=== PATIENT | male | born 1970 | race Caucasian/White ===

== ENCOUNTER 2019-09-18 08:21 | Emergency (ER) | payer OTHER ==
--- OUTSIDE RECORDS SUMMARY | 2019-09-18 08:38 | XMS REPORT | Continuity of Care Document ---
:1970 Author Name Gaming Commissioner, System Address Unavailable Unavailable , Care Team Providers Name Role Phone Jordy LE, Haritha Unavailable Tim LE, Az Unavailable Haritha Saldana MD Unavailable Magdalena Sampson MD Unavailable [facility] Unavailable Muñoz INPATIENT CARE MANAGER RN, Jille Unavailable Unavailable Zakiya INPATIENT CARE MANAGER RN, April Unavailable Unavailable Ginger INPATIENT CARE MANAGER RN, Noreen Unavailable Unavailable Slowik INPATIENT CARE MANAGER RN, Tana Unavailable Unavailable LICENSED TAX CONSULTANT Preload, LICENSED TAX CONSULTANT Unavailable Unavailable Loveless INPATIENT CARE MANAGER RN, Mary Unavailable Unavailable Grant INPATIENT CARE MANAGER RN, Dolores Unavailable Unavailable Beaudin INPATIENT CARE MANAGER RN, Andrea Unavailable Unavailable [place] INPATIENT CARE MANAGER RN, Lona Unavailable Unavailable Unavailable Unavailable Problems ALLERGIC RHINITIS (J30.9) (477.9) [facility] [place] [facility] ANXIETY (F41.9) (300.00) COLITIS (K52.9) (558.9) [facility] 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 Prognosis: He reports sporadic use of the dental appliance. He is still working with his dentist to get a comfortable fit. He has no interest in retrial of cpap. as of 16-Jul-2019 Missy AHI 6/hr, 89%, CPAP intol., sleeps with a dental appliance PULMONARY NODULES (R91.8) (793.19) [place] Comments: completed [address] [place] [address] Chest surveillance 03/22/11, stable SINUS DISEASE (J34.9) (473.9) [place] TOXIC EFFECT OF TOBACCO (T65.291A) (989.84) [place] Prognosis: QUIT SMOKING IN AUGUST. ENCOURAGED HIM TO REMAIN SMOKE FREE. as of 16-Jul-2019 Missy Allergies and Adverse Reactions Mold Spores (Allergy) Wellbutrin *ANTIDEPRESSANTS* (Allergy) Comments: swelling/ diffculty breathing Medications DENTAL DEVICE ( Device) (Free Comments: Dr Paredes Text) Escitalopram Oxalate 20 MG Oral Tablet; 1 daily (20 MG) LIPITOR, 20MG (Oral Tablet); daily (20 MG) OMNARIS, 50MCG/ACT (Nasal Comments: Medication taken as Suspension); as needed (50 needed. MCG/ACT) SINGULAIR, 10MG (Oral Tablet); 1 daily (10 MG) Symbicort 160-4.5 MCG/ACT Inhalation Aerosol; 2 (two) Puff(s) two times daily for 90 days Ordered: 31-Jul-2019 Start: 31-Jul-2019 Quantity: 3 {Inhaler} [place] Refills: 3 Vitamin D 41159 UNIT Oral Capsule; 1 once a week (64186 UNIT) Xopenex HFA 45 MCG/ACT Inhalation Aerosol; 1 Aerosol tid prn for 90 days Ordered: 08-Aug-2018 Start: 08-Aug-2018 Quantity: 3 {Inhaler} [place] Refills: 3 Acid General Production Worker 10 MG Oral Status: Inactive Tablet; as needed (10 MG) Comments: Medication taken as needed. ALEJANDRO ALLERGY, 180MG (Oral Tablet); 1 (one) Tablet daily, prn for 30 days Ordered: 21-Sep-2014 Start: 27-Jul-2014 End: 26-Aug-2014 Quantity: 30 {Tablet} [facility] Status: Inactive Refills: 0 Augmentin 875-125 MG Oral Tablet; 1 (one) Tablet two times daily for 10 days Ordered: 18-Mar-2018 Start: 18-Mar-2018 End: 28-Mar-2018 Quantity: 20 {Tablet} [facility] Status: Inactive Refills: 0 AVELOX, 400MG (Oral Tablet); 1 (one) Tablet daily for 7 days Ordered: 2010 Start: 25-Sep-2011 End: 02-Oct-2011 Quantity: 7 {Tablet} [facility] Status: Inactive Refills: 0 CALCIUM GLUCONATE, 650MG (Oral Status: Inactive Tablet); 2 tabs daily (650 MG) CHANTIX CONTINUING MONTH BEVERLY, 1MG (Oral Tablet); 1 (one) Tablet UAD for 90 days Ordered: 01-Jul-2013 Start: 10-Oct-2012 End: 01-Jul-2013 Quantity: 180 {Tablet} OLGA Burns Status: Inactive Refills: 1 CHANTIX CONTINUING MONTH BEVERLY, 1MG (Oral Tablet); 1 (one) Tablet UAD for 30 days Ordered: 01-Jul-2013 Start: 10-Oct-2012 End: 01-Jul-2013 Quantity: 60 {Tablet} OLGA Burns Status: Inactive Refills: 5 DENTAL DEVICE ( Device) (Free Text); 1 (one) unspecified at bedtime for 365 days Ordered: 22-Feb-2015 Start: 27-Jul-2014 End: 22-Feb-2015 Quantity: 1 {Unspecified} OLGA Burns Status: Inactive Refills: 0 FISH OIL (Oil) Status: Inactive FISH OIL, 1200MG (Oral Status: Inactive Capsule); 3 daily (1200 MG) FLEXERIL, 10MG (Oral Tablet); Status: Inactive 1 daily, as needed (10 MG) Comments: Medication taken as needed. Gabapentin 300 MG Oral Status: Inactive Capsule; (300 MG) Hydrocodone-Acetaminophen Status: Inactive 5-325 MG Oral Tablet; (5-325 MG) LIPITOR, 20MG (Oral Tablet); Status: Inactive daily (20 MG) Medrol 4 MG Oral Tablet Therapy Pack; 1 (one) beverly UAD for 6 days Ordered: Mar-2018 Start: 18-Mar-2018 End: 24-Mar-2018 Quantity: 1 {Tablet} [facility] Status: Inactive Refills: 0 NAPROXEN SODIUM, 220MG (Oral Status: Inactive Capsule); 1 daily, as needed Comments: Medication taken as needed. (220 MG) Nexium; 40mg daily Status: Inactive NORCO, 5-325MG (Oral Tablet); Status: Inactive 1 two times daily, as needed Comments: Medication taken as needed. (5-325 MG) SINGULAIR, 10MG (Oral Tablet); 1 Tablet daily for 90 days Ordered: 2013 Start: 16-Dec-2012 End: 13-Jan-2014 Quantity: 90 {Tablet} OLGA Cummings Tana Status: Inactive Refills: 3 SINGULAIR, 10MG (Oral Tablet); Status: Inactive daily (10 MG) SPIRIVA HANDIHALER, 18MCG Status: Inactive (Inhalation Capsule); daily (18 MCG) SYMBICORT, 160-4.5MCG/ACT Start: 17-May-2012 (Inhalation Aerosol); 2 (two) Status: Inactive two times daily (160-4.5 MCG/ACT) TraMADol HCl 50 MG Oral Status: Inactive Tablet; (50 MG) TRAZODONE HCL, 50MG (Oral Status: Inactive Tablet); 1 at bedtime, as Comments: Medication taken as needed. needed (50 MG) VALIUM, 5MG (Oral Tablet); 1 Status: Inactive at bedtime, as needed (5 MG) Comments: Medication taken as needed. Bevespi Aerosphere 9-4.8 MCG/ACT Inhalation Aerosol; 2 (two) Puff two times daily for 90 days Ordered: 16-Jul-2019 Start: 16-Jul-2019 End: 16-Jul-2019 Quantity: 3 {Inhaler} [facility] Status: Discontinued Refills: 3 LEVBID, 0.375MG (Oral Tablet End: 13-Feb-2012 Extended Release 12 Hour); Status: Discontinued daily (0.375 MG) PREDNISONE, 10MG (Oral End: 16-Dec-2012 Tablet); daily (10 MG) Status: Discontinued Spiriva HandiHaler 18 MCG Inhalation Capsule; 1 (one) Capsule daily for 90 days Ordered: 14-Oct-2018 Start: 14-Oct-2018 End: 14-Oct-2018 Quantity: 90 {Capsule} [place] Status: Discontinued Refills: 3 Procedures DLCO (CARBON MONOXIDE DIFFUSING CAPACITY) Status: Completed 14-Oct-2018 (87514) RESPIRATORY FLOW VOLUME LOOP (18603) Status: Completed 14-Oct-2018 REST OXIMETRY (09116) Status: Completed 14-Oct-2018 RESPIRATORY FLOW VOLUME LOOP (88085) Status: Completed 18-Mar-2018 PRE AND POST W/ RT (46195) Status: Completed 18-Mar-2018 ADMINISTRATION OF INFLUENZA VACCINE TO Status: Completed 20-Aug-2017 PATIENTS 3 YEARS AND OLDER: FLU VACCINE 3 YRS & > IM (65036) ADMIN INFLUENZA VIRUS VAC: IMMUNIZATION Status: Completed 20-Aug-2017 ADMIN (07518) REST OXIMETRY (96675) Status: Completed 20-Nov-2016 RESPIRATORY FLOW VOLUME LOOP (52108) Status: Completed 20-Nov-2016 RESPIRATORY FLOW VOLUME LOOP (33857) Status: Completed 28-Sep-2015 PRE AND POST W/ RT (53380) Status: Completed 28-Sep-2015 PRE AND POST W/ RT (94758) Status: Completed 22-Feb-2015 RESPIRATORY FLOW VOLUME LOOP (24288) Status: Completed 22-Feb-2015 RESPIRATORY FLOW VOLUME LOOP (07140) Status: Completed 27-Jul-2014 PRE AND POST (24274) Status: Completed 27-Jul-2014 RESPIRATORY FLOW VOLUME LOOP (88896) Status: Completed 13-Jan-2014 PRE AND POST W/ RT (84040) Status: Completed 13-Jan-2014 RESPIRATORY FLOW VOLUME LOOP (09936) Status: Completed 01-Jul-2013 SPIROMETRY WITH BRONCHODILATOR (66793) Status: Completed 01-Jul-2013 TOTAL VITAL CAPACITY (85672) Status: Completed 16-Dec-2012 TOTAL BODY PLETHYSMOGRAPHY: AIRWAY CLOSING Status: Completed 16-Dec-2012 VOLUME MEASUREMENT: PULM FUNCT TST PLETHYSMOGRAP (90646) RESPIRATORY FLOW VOLUME LOOP (92187) Status: Completed 16-Dec-2012 THORACIC GAS VOLUME: AIRWAY CLOSING VOLUME Status: Completed 16-Dec-2012 MEASUREMENT: PULM FUNCTION TEST BY GAS (04983) DLCO (CARBON MONOXIDE DIFFUSING CAPACITY) Status: Completed 16-Dec-2012 (87785) AIRFLOW RESISTANCE MEASUREMENT (11666) Status: Completed 16-Dec-2012 SPIROMETRY WITH BRONCHODILATOR (72732) Status: Completed 16-Dec-2012 TOBACCO USE CESSATION THERAPY: BEHAV CHNG Status: Completed 19-Aug-2012 SMOKING 3-10 MIN (41040) ACT Status: Completed Comments: 19. well controlled ACT Status: Completed Comments: ACT Status: Completed 28-Sep-2015 Comments: Back Surgery Status: Completed 29-Jun-2017 Comments: again May cervical disc surgery Status: Completed 2007 Chest X-ray Status: Completed Comments: Normal. . official interpretation and comparison by the radiologist is pending. Chest X-ray Status: Completed 14-Oct-2018 Comments: reviewed with lungs clear. official interpretation and comparison by the radiologist is pending. Chest X-ray Status: Completed Comments: Referred for follow up. stable. Chest X-ray Status: Completed 28-Sep-2015 Comments: reviewed with no acute findings. official interpretation and comparison by the radiologist is pending. Chest X-ray Status: Completed 13-Jan-2014 Comments: reviewed today with no acute findings. official interpretation and comparison by the radiologist is pending. Flu Vaccine Status: Completed 12-Aug-2017 Comments: 08/2018 Fusion L5S1 Status: Completed May-2019 PFT Status: Completed 16-Jul-2019 Comments: Minimal Obstruction. flow rates are worse compared to 10/14/18 PFT Status: Completed Comments: Mild Obstruction. Moderate Obstruction. With Reversibility. FEV1 SLIGHTLY DECREASED COMPARED TO 02/13/12 PFT Status: Completed 20-Aug-2017 Comments: declined d/t recent back surgery PFT Status: Completed 18-Mar-2018 Comments: Mild Obstruction. flow rates are stable compared to 11/20/16 PFT Status: Completed 14-Oct-2018 Comments: Mild Obstruction. flow rates have improved compared to 03/28/18. FVC 5.56 (99%), FEV1 3.84(88%), ratio 69%. Normal DLCO PFT Status: Completed 27-Jul-2014 Comments: Mild Obstruction. stable fow rates compared to 01/13/14 PFT Status: Completed 22-Feb-2015 Comments: Mild Obstruction. Moderate Obstruction. flow rates are stable compared to 07/27/14 PFT Status: Completed Comments: Mild Obstruction. Flow rates are stable compared to 02/22/15. PFT Status: Completed Comments: Mild Obstruction. Air Trapping. Normal Diffusion Capacity. FLOW RATES IMPROVED COMPARED TO 08/19/12 PFT Status: Completed 01-Jul-2013 Comments: Mild Obstruction. stable compared to 12/16/12 PFT Status: Completed 13-Jan-2014 Comments: Mild Obstruction. Moderate Obstruction. flow rates stable compared to 07/01/13 PFTs Status: Completed Comments: Moderate Obstruction. Air Trapping. Normal Diffusion Capacity. flow rates and air trapping worse compared to 03/22/11 and 10/06/08 PFTs Status: Completed Comments: Moderate Obstruction. Pneumovax Status: Completed 2008 Sinus Surgery Status: Completed 2001 PRE AND POST W/ RT (73096)Result: Hemoptysis: No Status: Completed 16-Jul-2019 PRE AND POST (07363)Result: Hemoptysis: No Status: Completed 14-Oct-2018 CXR PA & LAT (25687)Result: Are you or could Status: Completed you become ?: No; When was you last CXR/CT?: over week ago; Service Crew Leader: MIGUE MerchantT CHEST X-RAY, PA AND LATERAL (45646)Result: Are you Status: Completed 2016 or could you become ?: No; When was you last CXR/CT?: over a week ago; Service Crew Leader: buffy CAMARENAT ACT: ASSESSMENT OF DISEASE: ASTHMA SYMPTOMS EVALUATE Status: Completed 2016 (1005F)Result: [Questions] In the past 4 weeks, how much of the time did your asthma keep you from getting as much done at work, school, or home?: 5; During the past 4 weeks, how often have you had shortness of breath?: 4; During the past 4 weeks, how often did your asthma symptoms (wheezing, coughing, shortness of breath, chest tightness, or pain) wake you up at night or earlier than usual in the morning?: 5; During the past 4 weeks, how often have you used your rescue inhaler or nebulizer medication (such as albuterol)?: 3; How would you rate your asthma control during the past 4 weeks?: 5 [Total ACT Score] Score: 21 PRE AND POST W/ RT (03109)Result: Hemoptysis: No Status: Completed 20-Nov-2016 CHEST X-RAY, PA AND LATERAL (02121)Result: Are you Status: Completed 2014 or could you become ?: No; When was you last CXR/CT?: over a week ago; Service Crew Leader: MAGDALENA Merchant ACT: ASSESSMENT OF DISEASE: ASTHMA SYMPTOMS EVALUATE Status: Completed (1005F)Result: [Questions] In the past 4 weeks, how much of the time did your asthma keep you from getting as much done at work, school, or home?: 5; During the past 4 weeks, how often have you had shortness of breath?: 3; During the past 4 weeks, how often did your asthma symptoms (wheezing, coughing, shortness of breath, chest tightness, or pain) wake you up at night or earlier than usual in the morning?: 4; During the past 4 weeks, how often have you used your rescue inhaler or nebulizer medication (such as albuterol)?: 3; How would you rate your asthma control during the past 4 weeks?: 3 [Total ACT Score] Score: 18 ACT: ASSESSMENT OF DISEASE: ASTHMA SYMPTOMS EVALUATE Status: Completed 2013 (1005F)Result: [Questions] In the past 4 weeks, how much of the time did your asthma keep you from getting as much done at work, school, or home?: 4; During the past 4 weeks, how often have you had shortness of breath?: 2; During the past 4 weeks, how often did your asthma symptoms (wheezing, coughing, shortness of breath, chest tightness, or pain) wake you up at night or earlier than usual in the morning?: 4; During the past 4 weeks, how often have you used your rescue inhaler or nebulizer medication (such as albuterol)?: 3; How would you rate your asthma control during the past 4 weeks?: 3 [Total ACT Score] Score: 16 ACT: ASSESSMENT OF DISEASE: ASTHMA SYMPTOMS EVALUATE Date: 16-Dec-2012 (1005F)Result: [Questions] In the past 4 weeks, how much of the time did your asthma keep you from getting as much done at work, school, or home?: 5; During the past 4 weeks, how often have you had shortness of breath?: 4; During the past 4 weeks, how often did your asthma symptoms (wheezing, coughing, shortness of breath, chest tightness, or pain) wake you up at night or earlier than usual in the morning?: 4; During the past 4 weeks, how often have you used your rescue inhaler or nebulizer medication (such as albuterol)?: 3; How would you rate your asthma control during the past 4 weeks?: 4 [Total ACT Score] Score: 20 CHEST X-RAY, PA AND LATERAL (02227)Result: Are you Status: Completed 2012 or could you become ?: No; Service Crew Leader: Lois Peterson LPN CHEST X-RAY - PA & L (12218)Result: Are you Status: Completed or could you become ?: No; Service Crew Leader: MAGDALENA Merchant TOTAL BODY PLETHYSMOGRAPHY (92479)Result: Hemoptysis: Date: 25-Sep-2011 No; Medication Used: Albuterol 0.083% pam aerosol; Lens Finisher: Christiano Cummings RRT Immunizations Influenza (3 years and up) On: Sep-2011 Influenza (3 years and up) On: Sep-2012 Influenza (3 years and up) On: Aug-2013 Influenza (3 years and up) On: 12-Aug-2014 Comments:date approximate Influenza (3 years and up) On: 12-Aug-2015 Comments:work Influenza (3 years and up) On: 12-Aug-2016 Comments:pcp Family History Father Status: Active Comments: Extrinsic Asthma. childhood Lung Cancer Status: Active Comments: Paternal Aunt. Sleep Apnea Status: Active Comments: Brother. Social History Alcohol use: Occasional alcohol use. Caffeine use: Coffee. 2 servings / day. Current work status: Full-time. Marital status: . 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 No drug use Pets/Animals: Dog. Tobacco use: Former smoker. Comments: 13 yrs- 41 yrs. quit almost one year ago Former smoker Male Plan of Treatment Influenza (3 years and up) Scheduled for Administration Intent CXR PA & LAT (77150) Start: 14-Nov-2019 Intent PRE AND POST W/ RT (06077) Start: 14-Nov-2019 Intent ACT: ASSESSMENT OF DISEASE: ASTHMA SYMPTOMS EVALUATE Start: 28-Sep-2015 Intent (1005F) ACT: ASSESSMENT OF DISEASE: ASTHMA SYMPTOMS EVALUATE Start: 27-Jul-2014 Intent (1005F) CHEST X-RAY, PA AND LATERAL (54271) Start: 13-Jan-2014 Intent PRE/POST W/ RT (62474) Start: 19-Aug-2012 Intent RESPIRATORY FLOW VOLUME LOOP (96991) Start: 13-Feb-2012 Intent Pre/Post (78275) Start: 13-Feb-2012 Intent MEASURE AIRFLOW RESISTANCE (44206) Start: 25-Sep-2011 Intent MONOXIDE DIFFUSING CAPACITY (44958) Start: 25-Sep-2011 Intent TGV THORACIC GAS VOLUME (52218) Start: 25-Sep-2011 Intent VITAL CAPACITY TEST (19351) Start: 25-Sep-2011 Intent RESPIRATORY FLOW VOLUME LOOP (72762) Start: 25-Sep-2011 Intent Pre/Post (42227) Start: 25-Sep-2011 Intent Medical; CHEST X-RAY - Start: 19-Nov-2019 8:15 Appointment Request [facility]; PRE AND POST RT - Start: 19-Nov-2019 8:30 Appointment [facility]; FOLLOW UP 30 - 4 mnth fu w/pprt,cxr Start: 19-Nov-2019 8:45 Appointment Request [facility] COPD WITH ASTHMA : FU EITHER - Dr Adams patient Indication:COPD WITH ASTHMA COPD WITH ASTHMA : FU EITHER - Dr Adams patient Indication:COPD WITH ASTHMA COPD WITH ASTHMA : FU EITHER - Dr Adams patient Indication:COPD WITH ASTHMA COPD WITH ASTHMA : FU EITHER - Dr Adams patient Indication:COPD WITH ASTHMA COPD WITH ASTHMA : Dr TIM BARROS MD Indication:COPD WITH ASTHMA COPD WITH ASTHMA : Influenza vaccine seasonally - current Indication:COPD WITH ASTHMA COPD WITH ASTHMA : FU EITHER - Dr Adams patient Indication:COPD WITH ASTHMA COPD WITH ASTHMA : FU EITHER - Dr Adams patient Indication:COPD WITH ASTHMA COPD WITH ASTHMA : FU EITHER - Dr Adams patient Indication:COPD WITH ASTHMA COPD WITH ASTHMA : FU EITHER - Dr Adams patient Indication:COPD WITH ASTHMA COPD WITH ASTHMA : Influenza vaccine seasonally - current Indication:COPD WITH ASTHMA Medication compliance reinforced Medication compliance reinforced COPD WITH ASTHMA : Pre and post next visit Indication:COPD WITH ASTHMA Medication compliance reinforced Results No Known Results No Result Information Available Vital Signs 16-Jul-2019 8:41 Temperature 97.5 f Comments: Method: Tympanic Pulse 61 /min Comments: Pattern: Regular Respiration Rate 14 /min Comments: Pattern: Unlabored O2 SAT 98 % Comments: Room air BP Systolic 130 mm[Hg] Comments: Patient Position: Sitting; Cuff Location: Left Arm; Cuff Size: Large BP Diastolic 72 mm[Hg] Comments: Patient Position: Sitting; Cuff Location: Left Arm; Cuff Size: Large Weight 246 lb Height 73 in BMI 32.46 kg/m2 BSA 2.35 m2 14-Oct-2018 9:20 Temperature 97.3 f Comments: Method: Tympanic Pulse 72 /min Comments: Pattern: Regular Respiration Rate 16 /min Comments: Pattern: Unlabored O2 SAT 96 % Comments: Room air BP Systolic 124 mm[Hg] Comments: Patient Position: Sitting; Cuff Location: Left Arm; Cuff Size: Standard BP Diastolic 82 mm[Hg] Comments: Patient Position: Sitting; Cuff Location: Left Arm; Cuff Size: Standard Weight 245 lb Height 73 in BMI 32.32 kg/m2 BSA 2.35 m2 18-Mar-2018 8:41 Temperature 97.7 f Comments: Method: Tympanic Pulse 78 /min Comments: Pattern: Regular Respiration Rate 14 /min Comments: Pattern: Unlabored O2 SAT 97 % Comments: Room air BP Systolic 146 mm[Hg] Comments: Patient Position: Sitting; Cuff Location: Left Arm; Cuff Size: Standard BP Diastolic 80 mm[Hg] Comments: Patient Position: Sitting; Cuff Location: Left Arm; Cuff Size: Standard Weight 258 lb Height 73 in BMI 34.04 kg/m2 BSA 2.4 m2 20-Aug-2017 8:59 Temperature 98 f Comments: Method: Tympanic Pulse 80 /min Comments: Pattern: Regular Respiration Rate 15 /min Comments: Pattern: Unlabored O2 SAT 97 % Comments: Room air BP Systolic 130 mm[Hg] Comments: Patient Position: Sitting; Cuff Location: Left Arm; Cuff Size: Standard BP Diastolic 84 mm[Hg] Comments: Patient Position: Sitting; Cuff Location: Left Arm; Cuff Size: Standard Weight 248 lb Height 73 in BMI 32.72 kg/m2 BSA 2.36 m2 20-Nov-2016 14:36 Temperature 98.2 f Comments: Method: Tympanic Pulse 77 /min Comments: Pattern: Regular Respiration Rate 12 /min Comments: Pattern: Unlabored O2 SAT 98 % Comments: Room air BP Systolic 124 mm[Hg] Comments: Patient Position: Sitting; Cuff Location: Left Arm; Cuff Size: Standard BP Diastolic 74 mm[Hg] Comments: Patient Position: Sitting; Cuff Location: Left Arm; Cuff Size: Standard Weight 256 lb Height 73 in BMI 33.77 kg/m2 BSA 2.39 m2 28-Sep-2015 8:17 Temperature 98.3 f Comments: Method: Tympanic Pulse 73 /min Comments: Pattern: Regular Respiration Rate 15 /min Comments: Pattern: Unlabored O2 SAT 97 % Comments: Room air BP Systolic 142 mm[Hg] Comments: Patient Position: Sitting; Cuff Location: Left Arm; Cuff Size: Standard BP Diastolic 82 mm[Hg] Comments: Patient Position: Sitting; Cuff Location: Left Arm; Cuff Size: Standard Weight 267 lb Height 73 in BMI 35.23 kg/m2 BSA 2.43 m2 22-Feb-2015 11:22 Temperature 98.1 f Comments: Method: Tympanic Pulse 17 /min Comments: Pattern: Regular Respiration Rate 16 /min Comments: Pattern: Unlabored O2 SAT 97 % Comments: Room air BP Systolic 134 mm[Hg] Comments: Patient Position: Sitting; Cuff Location: Right Arm; Cuff Size: Large BP Diastolic 78 mm[Hg] Comments: Patient Position: Sitting; Cuff Location: Right Arm; Cuff Size: Large Weight 263 lb Height 73 in BMI 34.7 kg/m2 BSA 2.42 m2 27-Jul-2014 8:36 Temperature 96.7 f Pulse 62 /min Comments: Pattern: Regular O2 SAT 96 % Comments: Room air BP Systolic 144 mm[Hg] Comments: Patient Position: Sitting; Cuff Location: Left Arm; Cuff Size: Standard BP Diastolic 80 mm[Hg] Comments: Patient Position: Sitting; Cuff Location: Left Arm; Cuff Size: Standard Weight 258 lb Height 73 in BMI 34.04 kg/m2 BSA 2.4 m2 13-Jan-2014 8:43 Temperature 97 f Comments: Method: Tympanic Pulse 62 /min Comments: Pattern: Regular Respiration Rate 16 /min Comments: Pattern: Unlabored O2 SAT 98 % Comments: Room air BP Systolic 122 mm[Hg] Comments: Patient Position: Sitting; Cuff Location: Left Arm; Cuff Size: Large BP Diastolic 68 mm[Hg] Comments: Patient Position: Sitting; Cuff Location: Left Arm; Cuff Size: Large Weight 256 lb Height 73 in BMI 33.77 kg/m2 BSA 2.39 m2 01-Jul-2013 9:01 Temperature 98 f Comments: Method: Tympanic Pulse 82 /min Comments: Pattern: Regular Respiration Rate 18 /min Comments: Pattern: Unlabored O2 SAT 98 % Comments: Room air BP Systolic 122 mm[Hg] Comments: Patient Position: Sitting; Cuff Location: Left Arm; Cuff Size: Standard BP Diastolic 80 mm[Hg] Comments: Patient Position: Sitting; Cuff Location: Left Arm; Cuff Size: Standard Weight 255 lb Height 73 in BMI 33.64 kg/m2 BSA 2.39 m2 16-Dec-2012 9:31 Temperature 96.7 f Comments: Method: Tympanic Pulse 64 /min Comments: Pattern: Regular Respiration Rate 20 /min Comments: Pattern: Unlabored O2 SAT 97 % Comments: Room air BP Systolic 104 mm[Hg] Comments: Patient Position: Sitting; Cuff Location: Left Arm; Cuff Size: Standard BP Diastolic 68 mm[Hg] Comments: Patient Position: Sitting; Cuff Location: Left Arm; Cuff Size: Standard Weight 262 lb Height 73 in BMI 34.57 kg/m2 BSA 2.41 m2 19-Aug-2012 8:51 Temperature 96 f Pulse 68 /min Comments: Pattern: Regular Respiration Rate 16 /min Comments: Pattern: Unlabored O2 SAT 99 % Comments: Room air BP Systolic 126 mm[Hg] Comments: Patient Position: Sitting; Cuff Location: Left Arm; Cuff Size: Standard BP Diastolic 78 mm[Hg] Comments: Patient Position: Sitting; Cuff Location: Left Arm; Cuff Size: Standard Weight 254 lb Height 73 in BMI 33.51 kg/m2 BSA 2.38 m2 13-Feb-2012 9:24 Temperature 97.8 f Comments: Method: Tympanic Pulse 96 /min Comments: Pattern: Regular Respiration Rate 20 /min Comments: Pattern: Unlabored O2 SAT 97 % Comments: Room air BP Systolic 108 mm[Hg] Comments: Patient Position: Sitting; Cuff Location: Left Arm; Cuff Size: Standard BP Diastolic 76 mm[Hg] Comments: Patient Position: Sitting; Cuff Location: Left Arm; Cuff Size: Standard Weight 257 lb Height 73 in BMI 33.91 kg/m2 BSA 2.39 m2 25-Sep-2011 9:15 Temperature 97.8 f Comments: Method: Oral Pulse 68 /min Comments: Pattern: Regular Respiration Rate 22 /min Comments: Pattern: Unlabored O2 SAT 98 % Comments: Room air BP Systolic 122 mm[Hg] Comments: Patient Position: Sitting; Cuff Location: Left Arm; Cuff Size: Standard BP Diastolic 68 mm[Hg] Comments: Patient Position: Sitting; Cuff Location: Left Arm; Cuff Size: Standard Weight 244 lb Height 73 in BMI 32.19 kg/m2 BSA 2.34 m2 Advance Directives HIPAA - Effective on 10/14/2018. Expiration date unspecified. Effective: 2017 Scanned Document is available upon request. Encounters Medication Order 31-Jul-2019 11:22 To 31-Jul-2019 11:30 Encounter Diagnosis: COPD WITH ASTHMA [facility] Office Office Visit 16-Jul-2019 8:45 To 16-Jul-2019 9:54 Encounter Reason: COPD - The primary physician is Dr. Haritha Saldana. The last office visit was 9 month(s) ago ( at [facility] the time of the last visit we discontinued symbicort and spiriva and started Bevespi). 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 Symptoms include dyspnea on exertion and whee zing, while symptoms do not include non-productive cough, productive cough, clear sputum production, colored sputum production, increased sputum production or change in sputum quality. Onset was gradual 5 year(s) ago. The symptoms occur occasionally. The episodes occur daily. The patient describes this as mild and worsening. Symptoms are exacerbated by activity. Symptoms are relieved by inhaler use an d rest. Associated symptoms do not include fever, leg edema, upper respiratory infection symptoms, chest pain or altered mental status. Current treatment includes smoking cessation program, inhaled long -acting beta-2 agonists and inhaled anticholinergics. By report there is good compliance with treatment, good tolerance of treatment and fair symptom control. The frequency of exacerbations has been 1 t imes a year. Pertinent medical history includes smoking (has quit) and asthma ( allergies). The patient has not been exposed to secondhand smoke, air pollution or occupational exposure to dust. The patie nt is currently able to do activities of daily living with limitations. Past evaluation has included chest x-ray, chest CT (with stable pulmonary nodules > 2 years), pulse oximetry, pulmonary functio n tests and pulmonology evaluation. 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 AHI 6/hr, 89%, CPAP intol., sleeps with a dental appliance). No changes in management were made at the last visit. The patient gets approximately 6 hours of sleep per night. Curr ent treatment includes intra-oral device use. By report there is fair compliance with treatment, fair tolerance of treatment (the appliance still feels too tight. He is working with Dr Paredes ([facility]) t o try to adjust this) and fair symptom control. Current symptoms include sleepiness when sedentary and unrefreshing sleep, while current symptoms do not include excessive daytime sleepiness, witnessed a pnea during sleep, witnessed gasping during sleep, nocturnal choking or snoring. The patient describes this as unchanged. Symptoms are relieved by intra -oral device use. Associated symptoms do not inclu de morning headaches or nocturia. Since diagnosis the disease has been unchanged. Initial presentation included excessive daytime sleepiness, loud snoring and unrefreshing sleep. Past treatment has included CPAP therapy. Encounter Diagnosis: COPD WITH ASTHMA, JH ( OBSTRUCTIVE SLEEP APNEA), OBESITY, PULMONARY NODULES Historical Summary 24-Apr-2019 8:45 To 23-Apr-2019 14:10 Encounter Reason: COPD - The primary physician is Dr. Haritha Saldana. The last office visit was 6 month(s) ago. No [facility] changes in management were made at the last visit. 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 Symptoms include dyspnea on exertion , wheezing (at times expecially with exposure s), productive cough and clear sputum production, while symptoms do not include dyspnea, dyspnea at rest, non-productive cough, colored sputum production, increased sputum production or change in sputum quality. Onset was gradual 5 year(s) ago. The symptoms occur occasionally. The patient describes this as mild and unchanged. Symptoms are exacerbated by activity. Symptoms are relieved by inhaler use a nd rest. Associated symptoms do not include fever, leg edema, upper respiratory infection symptoms, chest pain or altered mental status. Current treatment includes smoking cessation program, inhaled geoffrey g-acting beta-2 agonists, inhaled anticholinergics and inhaled corticosteroids. By report there is good compliance with treatment, good tolerance of treatment and good symptom control. The frequency of exacerbations has been 1 times a year. Pertinent medical history includes smoking (has quit) and asthma (allergies). The patient has not been exposed to secondhand smoke, air pollution or occupational e xposure to dust. The patient is currently able to do activities of daily living without limitations and able to work without limitations. 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 AHI 6/hr, 89%, CPAP intol., sleeps with a dental appliance). No changes in manag ement were made at the last visit. The patient gets approximately 6 hours of sleep per night. Current treatment includes intra-oral device use. By report there is fair compliance with treatment, fair to lerance of treatment (the appliance feels too tight. He is working with Dr Paredes ([facility]) to try to adjust this) and fair symptom control. Current symptoms include sleepiness when sedentary and unrefres june sleep, while current symptoms do not include excessive daytime sleepiness , witnessed apnea during sleep, witnessed gasping during sleep, nocturnal choking or snoring. The patient describes this as unchanged. Symptoms are relieved by intra-oral device use. Associated symptoms do not include morning headaches or nocturia. Since diagnosis the disease has been unchanged. Initial presentation included excessive daytime sleepiness, loud snoring and unrefreshing sleep. Past treatment has included CPAP therapy. Medication Order 03-Mar-2019 15:20 To 03-Mar-2019 15:30 Encounter Diagnosis: COPD WITH ASTHMA [facility] Office Office Visit 14-Oct-2018 8:38 To 14-Oct-2018 13:03 Encounter Reason: COPD - The primary physician is Dr. Haritha Saldana. The last office visit was 7 month(s) ago ( at [facility] the time of his last visit he had a sinus infection, breathing was worse. We treated with augmentin and medrol.). 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 Symptoms include d yspnea on exertion, wheezing (at times expecially with exposures), productive cough and clear sputum production, while symptoms do not include dyspnea, dyspnea at rest, non-productive cough, colored spu fede production, increased sputum production or change in sputum quality. Onset was gradual 5 year(s) ago. The symptoms occur occasionally. The patient describes this as mild and unchanged. Symptoms are exacerbated by activity. Symptoms are relieved by inhaler use and rest. Associated symptoms do not include fever, leg edema, upper respiratory infection symptoms, chest pain or altered mental status. Cu rrent treatment includes smoking cessation program, inhaled long-acting beta-2 agonists, inhaled anticholinergics and inhaled corticosteroids. By report there is good compliance with treatment, good joy erance of treatment and good symptom control. The frequency of exacerbations has been 1 times a year. Pertinent medical history includes smoking (has quit) and asthma (allergies). The patient has not be en exposed to secondhand smoke, air pollution or occupational exposure to dust. The patient is currently able to do activities of daily living without limitations and able to work without limitations., [ADDITIONAL REASON] Sleep follow up - The sleep disorder is characterized as obstructive sleep apnea. No changes in management were made at the last visit. The patient gets approximately 6 hours of sle ep per night. Current treatment includes intra-oral device use. By report there is fair compliance with treatment, fair tolerance of treatment (the appliance feels too tight. He is working with Dr Camilo ridley ([facility]) to try to adjust this) and fair symptom control. Current symptoms include sleepiness when sedentary and unrefreshing sleep, while current symptoms do not include excessive daytime sleepiness, witnessed apnea during sleep, witnessed gasping during sleep, nocturnal choking or snoring. The patient describes this as mild and unchanged. Symptoms are relieved by intra-oral device use. Associated s ymptoms do not include morning headaches or nocturia. Since diagnosis the disease has been unchanged. Initial diagnosis of sleep disorder was 10 year(s) ago. Initial presentation included excessive dayt alejo sleepiness, loud snoring and unrefreshing sleep. Past evaluation has included complete polysomnography. Past treatment has included CPAP therapy. Encounter Diagnosis: PULMONARY NODULES, COPD WITH ASTHMA, JH (OBSTRUCTIVE SLEEP APNEA), OBESITY Office Visit 13-Oct-2018 6:38 To 13-Oct-2018 6:42 Encounter Reason: COPD - The primary physician is Dr. Haritha Saldana. The last office visit was 7 month(s) ago ( at [facility] the time of his last visit he had a sinus infection, breathing was worse. We treated with augmentin and medrol.). 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 Symptoms include d yspnea on exertion, wheezing (at times expecially with exposures), productive cough and clear sputum production, while symptoms do not include dyspnea, dyspnea at rest, non-productive cough, colored spu fede production, increased sputum production or change in sputum quality. Onset was gradual 5 year(s) ago. The symptoms occur occasionally. The patient describes this as mild and unchanged. Symptoms are exacerbated by activity. Symptoms are relieved by inhaler use and rest. Associated symptoms do not include fever, leg edema, upper respiratory infection symptoms, chest pain or altered mental status. Cu rrent treatment includes smoking cessation program, inhaled long-acting beta-2 agonists, inhaled anticholinergics and inhaled corticosteroids. By report there is good compliance with treatment, good joy erance of treatment and good symptom control. The frequency of exacerbations has been 1 times a year. Pertinent medical history includes smoking (has quit) and asthma (allergies). The patient has not be en exposed to secondhand smoke, air pollution or occupational exposure to dust. The patient is currently able to do activities of daily living without limitations and able to work without limitations., [ADDITIONAL REASON] Sleep follow up - The sleep disorder is characterized as obstructive sleep apnea. No changes in management were made at the last visit. The patient gets approximately 6 hours of sle ep per night. Current treatment includes intra-oral device use. By report there is fair compliance with treatment, fair tolerance of treatment and fair symptom control. Current symptoms include sleepine ss when sedentary and unrefreshing sleep, while current symptoms do not include excessive daytime sleepiness, witnessed apnea during sleep, witnessed gasping during sleep, nocturnal choking or snoring. The patient describes this as mild and unchanged. Symptoms are relieved by intra-oral device use. Associated symptoms do not include morning headaches or nocturia. Since diagnosis the disease has been s table. Initial diagnosis of sleep disorder was 10 year(s) ago. Initial presentation included excessive daytime sleepiness, loud snoring and unrefreshing sleep. Past evaluation has included complete poly somnography. Past treatment has included CPAP therapy. Medication Order 08-Aug-2018 14:13 To 08-Aug-2018 14:54 Encounter Diagnosis: COPD WITH ASTHMA [facility] Office Medication Order 16-Jul-2018 13:20 To 16-Jul-2018 13:39 Encounter Diagnosis: COPD WITH ASTHMA [facility] Office Visit 18-Mar-2018 8:21 To 18-Mar-2018 9:16 Encounter Reason: COPD - The primary physician is Dr. Haritha Saldana. The last office visit was 7 month(s) ago. No [facility] changes in management were made at the last visit. 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 Symptoms include dyspnea on exertion , wheezing (at times expecially with exposure s), productive cough, clear sputum production, colored sputum production ( green sputum for the past 3-4 days) and increased sputum production, while symptoms do not include dyspnea, dyspnea at rest, non -productive cough or change in sputum quality. Onset was gradual 5 year(s) ago. The symptoms occur occasionally. The patient describes this as mild and unchanged. Symptoms are exacerbated by activity. S ymptoms are relieved by inhaler use and rest. Associated symptoms include upper respiratory infection symptoms (following with ENT for persistent infectious sinus symptoms), while associated symptoms do not include fever, leg edema, chest pain or altered mental status. Current treatment includes smoking cessation program, inhaled long-acting beta-2 agonists, inhaled anticholinergics and inhaled cortic osteroids. By report there is good compliance with treatment, good tolerance of treatment and fair symptom control. The frequency of exacerbations has been 1 times a year. Pertinent medical history incl udes smoking (has quit) and asthma (allergies). The patient has not been exposed to secondhand smoke, air pollution or occupational exposure to dust. The patient is currently able to do activities of da becca living without limitations and able to work without limitations., [ ADDITIONAL REASON] Sleep follow up - The sleep disorder is characterized as obstructive sleep apnea . No changes in management were made at the last visit. The patient gets approximately 6 hours of sleep per night. Current treatment includes intra-oral device use. By report there is fair compliance wi th treatment, fair tolerance of treatment and fair symptom control. Current symptoms include sleepiness when sedentary (recently had back surgery and is having problems with sleeping d/t pain) and unref reshing sleep, while current symptoms do not include excessive daytime sleepiness, witnessed apnea during sleep, witnessed gasping during sleep, nocturnal choking or snoring. The patient describes this as mild and unchanged. Symptoms are relieved by intra-oral device use. Associated symptoms do not include morning headaches or nocturia. Since diagnosis the disease has been stable. Initial diagnosis of sleep disorder was 9 year(s) ago. Initial presentation included excessive daytime sleepiness, loud snoring and unrefreshing sleep. Past evaluation has included complete polysomnography. Past treatment has included CPAP therapy. Encounter Diagnosis: COPD WITH ASTHMA, PULMONARY NODULES, ALLERGIC RHINITIS, JH (OBSTRUCTIVE SLEEP APNEA), OBESITY Historical Summary 17-Mar-2018 15:39 To 17-Mar-2018 15:42 Encounter Reason: COPD - The primary physician is Dr. Haritha Saldana. The last office visit was 7 month(s) ago. No [facility] changes in management were made at the last visit. 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 Symptoms include dyspnea on exertion , wheezing (at times expecially with exposure s), productive cough (rare) and clear sputum production, while symptoms do not include dyspnea, dyspnea at rest, non-productive cough, colored sputum production, increased sputum production or change in sputum quality. Onset was gradual 5 year(s) ago. The symptoms occur occasionally. The patient describes this as mild and unchanged. Symptoms are exacerbated by activity. Symptoms are relieved by inhale r use and rest. Associated symptoms do not include fever, leg edema, upper respiratory infection symptoms, chest pain or altered mental status. Current treatment includes smoking cessation program, inha led long-acting beta-2 agonists, inhaled anticholinergics and inhaled corticosteroids. By report there is good compliance with treatment, good tolerance of treatment and good symptom control. The freque ncy of exacerbations has been 1 times a year. Pertinent medical history includes smoking (has quit) and asthma (allergies). The patient has not been exposed to secondhand smoke, air pollution or occupat ional exposure to dust. The patient is currently able to do activities of daily living without limitations and able to work without limitations., [ ADDITIONAL REASON] Sleep follow up - The sleep disorder is characterized as obstructive sleep apnea . No changes in management were made at the last visit. The patient gets approximately 6 hours of sleep per night. Current treatment includes intra-oral device use. By report there is fair compliance wi th treatment, fair tolerance of treatment and fair symptom control. Current symptoms include sleepiness when sedentary (recently had back surgery and is having problems with sleeping d/t pain) and unref reshing sleep, while current symptoms do not include excessive daytime sleepiness, witnessed apnea during sleep, witnessed gasping during sleep, nocturnal choking or snoring. The patient describes this as mild and unchanged. Symptoms are relieved by intra-oral device use. Associated symptoms do not include morning headaches or nocturia. Since diagnosis the disease has been stable. Initial diagnosis of sleep disorder was 9 year(s) ago. Initial presentation included excessive daytime sleepiness, loud snoring and unrefreshing sleep. Past evaluation has included complete polysomnography. Past treatment has included CPAP therapy. Medication Order 27-Aug-2017 15:35 To 27-Aug-2017 15:44 Encounter Diagnosis: COPD WITH ASTHMA [facility] Office Office Visit 20-Aug-2017 8:34 To 20-Aug-2017 9:53 Encounter Reason: COPD - The primary physician is Dr. Haritha Saldana. The last office visit was 9 month(s) ago. No [facility] changes in management were made at the last visit. 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 Symptoms include dyspnea on exertion , wheezing (at times expecially with exposure s), productive cough (rare) and clear sputum production, while symptoms do not include dyspnea, dyspnea at rest, non-productive cough, colored sputum production, increased sputum production or change in sputum quality. Onset was gradual 5 year(s) ago. The symptoms occur occasionally. The patient describes this as mild and unchanged. Symptoms are exacerbated by activity. Symptoms are relieved by inhale r use and rest. Associated symptoms do not include fever, leg edema, upper respiratory infection symptoms, chest pain or altered mental status. Current treatment includes smoking cessation program, inha led long-acting beta-2 agonists, inhaled anticholinergics and inhaled corticosteroids. By report there is good compliance with treatment, good tolerance of treatment and good symptom control. The freque ncy of exacerbations has been 1 times a year. Pertinent medical history includes smoking (has quit) and asthma (allergies). The patient has not been exposed to secondhand smoke, air pollution or occupat ional exposure to dust. The patient is currently able to do activities of daily living without limitations and able to work without limitations., [ ADDITIONAL REASON] Sleep follow up - The sleep disorder is characterized as obstructive sleep apnea . No changes in management were made at the last visit. The patient gets approximately 6 hours of sleep per night. Current treatment includes intra-oral device use. By report there is fair compliance wi th treatment, fair tolerance of treatment and fair symptom control. Current symptoms include sleepiness when sedentary (recently had back surgery and is having problems with sleeping d/t pain) and unref reshing sleep, while current symptoms do not include excessive daytime sleepiness, witnessed apnea during sleep, witnessed gasping during sleep, nocturnal choking or snoring. The patient describes this as mild and unchanged. Symptoms are relieved by intra-oral device use. Associated symptoms do not include morning headaches or nocturia. Since diagnosis the disease has been stable. Initial diagnosis of sleep disorder was 8 year(s) ago. Initial presentation included excessive daytime sleepiness, loud snoring and unrefreshing sleep. Past evaluation has included complete polysomnography. Past treatment has included CPAP therapy. Encounter Diagnosis: COPD WITH ASTHMA, FLU VACCINE NEED (Renamed from NEED FOR IMMUNIZATION AGAINST INFLUENZA), PULMONARY NODULES, JH (OBSTRUCTIVE SLEEP APNEA), OBESITY Medication Order 13-Aug-2017 8:54 To 13-Aug-2017 9:14 Encounter Diagnosis: COPD WITH ASTHMA [facility] Office Historical Summary 10-Jun-2017 15:42 To 10-Jun-2017 15:48 Encounter Reason: COPD - The primary physician is Dr. Haritha Saldana. The last office visit was 7 month(s) ago. No [facility] changes in management were made at the last visit. 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 Symptoms include dyspnea on exertion , wheezing (at times expecially with exposure s), non-productive cough, productive cough (rare) and clear sputum production, while symptoms do not include dyspnea, dyspnea at rest, colored sputum production, increased sputum production or change in sputum quality. Onset was gradual 5 year(s) ago. The symptoms occur occasionally. The patient describes this as mild and unchanged. Symptoms are exacerbated by activity. Symptoms are relieved by inhale r use and rest. Associated symptoms do not include fever, leg edema, upper respiratory infection symptoms, chest pain or altered mental status. Current treatment includes smoking cessation program, inha led long-acting beta-2 agonists, inhaled anticholinergics and inhaled corticosteroids. By report there is good compliance with treatment, good tolerance of treatment and good symptom control. The freque ncy of exacerbations has been 1 times a year. Pertinent medical history includes smoking (has quit) and asthma (allergies). The patient has not been exposed to secondhand smoke, air pollution or occupat ional exposure to dust. The patient is currently able to do activities of daily living without limitations and able to work without limitations., [ ADDITIONAL REASON] Sleep follow up - The sleep disorder is characterized as obstructive sleep apnea . No changes in management were made at the last visit. The patient gets approximately 6 hours of sleep per night. Current treatment includes intra-oral device use. By report there is fair compliance wi th treatment. Current symptoms do not include excessive daytime sleepiness, witnessed apnea during sleep, witnessed gasping during sleep, nocturnal choking , snoring, sleepiness when sedentary or unrefre shing sleep. The patient describes this as mild and unchanged. Symptoms are relieved by intra-oral device use. Associated symptoms do not include morning headaches or nocturia. Since diagnosis the disea se has been stable. Initial diagnosis of sleep disorder was 8 year(s) ago. Initial presentation included excessive daytime sleepiness, loud snoring and unrefreshing sleep. Past evaluation has included c omplete polysomnography. Past treatment has included CPAP therapy. Medication Order 12-Feb-2017 13:26 To 12-Feb-2017 14:37 Encounter Diagnosis: COPD WITH ASTHMA [facility] Office Medication Order 09-Feb-2017 9:42 To 12-Feb-2017 8:08 Encounter Diagnosis: COPD WITH ASTHMA [facility] Office Office Visit 20-Nov-2016 14:24 To 20-Nov-2016 15:14 Encounter Reason: COPD - The last office visit was 14 month(s) ago. No changes in management were made at the last [facility] t. The Gold Classification is Stage 2: Moderate COPD. Symptoms include dyspnea on exertion, productive cough and clear sputum production, while symptoms do not include dyspnea, dyspnea at rest, wheezing , non-productive cough, increased sputum production or change in sputum quality. Onset was gradual. The episodes occur daily. The patient describes this as unchanged. Symptoms are relieved by inhaler us e, while symptoms are not relieved by use of a nebulizer, supplemental oxygen, rest, recumbency, the upright position or cough suppressants. Associated symptoms do not include fever, weakness, general m alaise, hemoptysis, leg edema, orthopnea, upper respiratory infection symptoms , chest pain or altered mental status. Current treatment includes inhaled albuterol, inhaled long-acting beta-2 agonists, in haled anticholinergics and inhaled corticosteroids. By report there is good compliance with treatment., [ADDITIONAL REASON] Sleep follow up - The sleep disorder is characterized as obstructive sleep apnea . The last office visit was 14 month(s) ago. No changes in management were made at the last visit. The patient gets approximately 6 hours of sleep per night. Current treatment includes intra-oral device use. By report there is fair compliance with treatment. Current symptoms do not include excessive daytime sleepiness, witnessed apnea during sleep, witnessed gasping during sleep, nocturnal choking, sn oring, sleepiness when sedentary, unrefreshing sleep, impaired concentration, memory problems, irritability, restless legs or weight gain. The patient describes this as unchanged. Symptoms are relieved by intra-oral device use. Associated symptoms do not include morning headaches , nocturia, shortness of breath, depression or decreased libido. Since diagnosis the disease has been stable. Encounter Diagnosis: COPD WITH ASTHMA, OBESITY , ALLERGIC RHINITIS, JH (OBSTRUCTIVE SLEEP APNEA), PULMONARY NODULES Medication Order 22-Sep-2016 16:13 To 25-Sep-2016 8:39 Encounter Diagnosis: COPD WITH ASTHMA [facility] Office Medication Order 11-Sep-2016 11:50 To 11-Sep-2016 12:48 Encounter Diagnosis: COPD WITH ASTHMA [facility] Office Office Visit 28-Sep-2015 7:56 To 28-Sep-2015 9:27 Encounter Reason: COPD - The primary physician is Dr. Haritha Saldana. The last office visit was 7 month(s) ago. No [facility] Office changes in management were made at the last visit. 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 Symptoms include dyspnea on exertion , wheezing (at times expecially with exposure s), non-productive cough, productive cough (rare) and clear sputum production, while symptoms do not include dyspnea, dyspnea at rest, colored sputum production, increased sputum production or change in sputum quality. Onset was gradual 5 year(s) ago. The symptoms occur occasionally. The patient describes this as mild and unchanged. Symptoms are exacerbated by activity. Symptoms are relieved by inhale r use and rest. Associated symptoms do not include fever, leg edema, upper respiratory infection symptoms, chest pain or altered mental status. Current treatment includes smoking cessation program, inha led long-acting beta-2 agonists, inhaled anticholinergics and inhaled corticosteroids. By report there is good compliance with treatment, good tolerance of treatment and good symptom control. The freque ncy of exacerbations has been 1 times a year. Pertinent medical history includes smoking (has quit) and asthma (allergies). The patient has not been exposed to secondhand smoke, air pollution or occupat ional exposure to dust. The patient is currently able to do activities of daily living without limitations and able to work without limitations., [ ADDITIONAL REASON] sleep follow up - The patient sleeps an average of 6 hours per night. Cpap intol erant (patient has consulted with his dentist about an oral appliance. He is in the midst of getting insurance approval. ). The patient has decreased energy level and is sleeping poorly. Impact of disea se: physical impact-moderate. The amount of alcohol consumed is 1 drinks per month. Current medication use: no side effects (melatonin). Encounter Diagnosis: PULMONARY NODULES, JH ( OBSTRUCTIVE SLEEP APNEA), OBESITY, COPD WITH ASTHMA Historical Summary 28-Sep-2015 7:25 To 28-Sep-2015 7:28 Encounter Reason: COPD - The primary physician is Dr. Haritha Saldana. The last office visit was 7 month(s) ago. No [facility] Office changes in management were made at the last visit. The Gold Classification is Stage 1: Mild COPD. Symptoms include dyspnea on exertion, wheezing (at times expecially with exposures), non-productive coug h, productive cough (rare) and clear sputum production, while symptoms do not include dyspnea, dyspnea at rest, colored sputum production, increased sputum production or change in sputum quality. Onset was gradual 5 year(s) ago. The symptoms occur occasionally. The patient describes this as mild and unchanged. Symptoms are exacerbated by activity. Symptoms are relieved by inhaler use and rest. Associa michelle symptoms do not include fever, leg edema, upper respiratory infection symptoms, chest pain or altered mental status. Current treatment includes smoking cessation program, inhaled long-acting beta-2 agonists, inhaled anticholinergics and inhaled corticosteroids. By report there is good compliance with treatment, good tolerance of treatment and good symptom control. The frequency of exacerbations choudhary s been 1 times a year. Pertinent medical history includes smoking (has quit) and asthma (allergies). The patient has not been exposed to secondhand smoke, air pollution or occupational exposure to dust. The patient is currently able to do activities of daily living without limitations and able to work without limitations., [ADDITIONAL REASON] sleep follow up - The patient sleeps an average of 6 hours per night. Cpap intol erant (patient has consulted with his dentist about an oral appliance. He is in the midst of getting insurance approval. ). The patient has decreased energy level and is sleeping poorly. Impact of disea se: physical impact-moderate. The amount of alcohol consumed is 1 drinks per month. Current medication use: no side effects (melatonin). Medication Order 08-Apr-2015 16:56 To 12-Apr-2015 8:54 Encounter Diagnosis: ASTHMA (Renamed from AIRWAY HYPERREACTIVITY) [facility] Office Office Visit 22-Feb-2015 10:49 To 22-Feb-2015 12:03 Encounter Reason: COPD - The primary physician is Dr. HARITHA SALDANA. The last office visit was 7 month(s) ago. No [facility] Office changes in management were made at the last visit. The Gold Classification is Stage 1: Mild COPD. Symptoms include dyspnea on exertion, wheezing (at times expecially with exposures), non-productive coug h, productive cough (rare) and clear sputum production, while symptoms do not include dyspnea, dyspnea at rest, colored sputum production, increased sputum production or change in sputum quality. Onset was gradual 5 year(s) ago. The symptoms occur occasionally. The patient describes this as mild and unchanged. Symptoms are exacerbated by activity. Symptoms are relieved by inhaler use and rest. Associa michelle symptoms do not include fever, leg edema, upper respiratory infection symptoms, chest pain or altered mental status. Current treatment includes smoking cessation program, inhaled long-acting beta-2 agonists, inhaled anticholinergics and inhaled corticosteroids. By report there is good compliance with treatment, good tolerance of treatment and good symptom control. The frequency of exacerbations choudhary s been 1 times a year. Pertinent medical history includes smoking (has quit) and asthma (allergies). The patient has not been exposed to secondhand smoke, air pollution or occupational exposure to dust. The patient is currently able to do activities of daily living without limitations and able to work without limitations., [ADDITIONAL REASON] sleep follow up - The patient sleeps an average of 6 hours per night. Cpap intol erant (patient has consulted with his dentist about an oral appliance. He is in the midst of getting insurance approval. ). The patient has decreased energy level and is sleeping poorly. Impact of disea se: physical impact-moderate. The amount of alcohol consumed is 1 drinks per month. Current medication use: no side effects (melatonin). Encounter Diagnosis: ASTHMA (Renamed from [employer]WAY [employer]REACTIVITY), ALLERGIC RHINITIS, JH (OBSTRUCTIVE SLEEP APNEA), OBESITY, PULMONARY NODULES Historical Summary 22-Feb-2015 9:53 To 22-Feb-2015 9:54 Encounter Reason: COPD - The primary physician is Dr. HARITHA SALDANA. The last office visit was 7 month(s) ago. No [facility] Office changes in management were made at the last visit. The Gold Classification is Stage 1: Mild COPD. Symptoms include dyspnea on exertion and wheezing (at times expecially with exposures), while symptoms d o not include dyspnea, dyspnea at rest, non-productive cough, productive cough , clear sputum production, colored sputum production, increased sputum production or change in sputum quality. Onset was gra dual 5 year(s) ago. The symptoms occur occasionally. The patient describes this as mild and unchanged. Symptoms are exacerbated by activity. Symptoms are relieved by inhaler use and rest. Associated sym ptoms do not include fever, leg edema, upper respiratory infection symptoms, chest pain or altered mental status. Current treatment includes smoking cessation program, inhaled long-acting beta-2 agonist s, inhaled anticholinergics and inhaled corticosteroids. By report there is good compliance with treatment, good tolerance of treatment and good symptom control. The frequency of exacerbations has been 1 times a year. Pertinent medical history includes smoking (has quit) and asthma (allergies). The patient has been exposed to secondhand smoke, while the patient has not been exposed to air pollution or occupational exposure to dust. The patient is currently able to do activities of daily living without limitations and able to work without limitations., [ADDITIONAL REASON] sleep follow up - The patient sleeps an average of 6 hours per night. Cpap intolerant. The patient has decreased energy level and is sleeping poorly. Impact of disease: physical imp act-moderate. The amount of alcohol consumed is 1 drinks per month. Current medication use: no side effects (melatonin). Medication Order 12-Feb-2015 13:34 To 12-Feb-2015 14:47 Encounter Diagnosis: ASTHMA (Renamed from AIRWAY HYPERREACTIVITY) [facility] Office Office Visit 27-Jul-2014 8:19 To 27-Jul-2014 9:05 Encounter Reason: COPD - The primary physician is Dr. HARITHA SALDANA. The last office visit was 6 month(s) ago. No [facility] Office changes in management were made at the last visit. The Gold Classification is Stage 1: Mild COPD. Symptoms include dyspnea on exertion and wheezing (at times expecially with exposures), while symptoms d o not include dyspnea, dyspnea at rest, non-productive cough, productive cough , clear sputum production, colored sputum production, increased sputum production or change in sputum quality. Onset was gra dual 5 year(s) ago. The symptoms occur occasionally. The patient describes this as mild and unchanged. Symptoms are exacerbated by activity. Symptoms are relieved by inhaler use and rest. Associated sym ptoms do not include fever, leg edema, upper respiratory infection symptoms, chest pain or altered mental status. Current treatment includes smoking cessation program, inhaled long-acting beta-2 agonist s, inhaled anticholinergics and inhaled corticosteroids. By report there is good compliance with treatment, good tolerance of treatment and good symptom control. The frequency of exacerbations has been 1 times a year. Pertinent medical history includes smoking (has quit) and asthma (allergies). The patient has been exposed to secondhand smoke, while the patient has not been exposed to air pollution or occupational exposure to dust. The patient is currently able to do activities of daily living without limitations and able to work without limitations., [ADDITIONAL REASON] sleep follow up - The patient sleeps an average of 6 hours per night. Cpap intolerant. The patient has decreased energy level and is sleeping poorly. Impact of disease: physical imp act-moderate. The amount of alcohol consumed is 1 drinks per month. Current medication use: no side effects (melatonin). Encounter Diagnosis: ASTHMA (Renamed from [employer]WAY [employer]PERREACTIVITY), JH (OBSTRUCTIVE SLEEP APNEA), OBESITY, ALLERGIC RHINITIS Historical Summary 26-Jul-2014 9:34 To 26-Jul-2014 9:40 Encounter Reason: COPD - The primary physician is Dr. HARITHA SALDANA. The last office visit was 6 month(s) ago. No [facility] Office changes in management were made at the last visit. The Gold Classification is Stage 1: Mild COPD. Symptoms include dyspnea on exertion and wheezing (at times) , while symptoms do not include dyspnea, dys pnea at rest, non-productive cough, productive cough, clear sputum production, colored sputum production, increased sputum production or change in sputum quality. Onset was gradual 5 year(s) ago. The sy mptoms occur occasionally. The patient describes this as mild and unchanged. Symptoms are exacerbated by activity. Symptoms are relieved by inhaler use and rest. Associated symptoms do not include fever , leg edema, upper respiratory infection symptoms, chest pain or altered mental status. Current treatment includes smoking cessation program, inhaled long-acting beta-2 agonists, inhaled anticholinergic s and inhaled corticosteroids. By report there is good compliance with treatment, good tolerance of treatment and good symptom control. The frequency of exacerbations has been 1 times a year. Pertinent medical history includes smoking (has quit) and asthma. The patient has been exposed to secondhand smoke, while the patient has not been exposed to air pollution or occupational exposure to dust. The nii edmonds is currently able to do activities of daily living without limitations and able to work without limitations., [ADDITIONAL REASON] sleep follow up - The patient sleeps an average of 6 hours per night. Cpap intol erant. The patient has good energy level and weight gain. Impact of disease: no overall impact. The amount of alcohol consumed is 1 drinks per month. Current medication use: no side effects (MELATONIN). Order Only 02-Feb-2014 16:37 To 02-Feb-2014 16:41 Encounter Diagnosis: ASTHMA (Renamed from AIRWAY HYPERREACTIVITY) [facility] Office Office Visit 13-Jan-2014 8:29 To 13-Jan-2014 9:09 Encounter Reason: COPD - The primary physician is Dr. HARITHA SALDANA. The last office visit was 7 month(s) ago. No [facility] Office changes in management were made at the last visit. The Gold Classification is Stage 1: Mild COPD. Symptoms include dyspnea on exertion (sl. worse in the cold weather) and wheezing (at times), while symp toms do not include dyspnea, dyspnea at rest, non-productive cough, productive cough, clear sputum production, colored sputum production, increased sputum production or change in sputum quality. Onset w as gradual 5 year(s) ago. The symptoms occur occasionally. The patient describes this as mild and unchanged. Symptoms are exacerbated by activity and smoking. Symptoms are relieved by inhaler use and re st. Associated symptoms do not include fever, leg edema, upper respiratory infection symptoms, chest pain or altered mental status. Current treatment includes smoking cessation program, inhaled long-act ing beta-2 agonists, inhaled anticholinergics and inhaled corticosteroids. By report there is good compliance with treatment, good tolerance of treatment and good symptom control. The frequency of exace rbations has been 1 times a year. Pertinent medical history includes smoking ( has quit) and asthma. The patient has been exposed to secondhand smoke, while the patient has not been exposed to air pollut ion or occupational exposure to dust. The patient is currently able to do activities of daily living without limitations and able to work without limitations., [ADDITIONAL REASON] sleep follow up - The patient sleeps an average of 6 hours per night. Cpap intolerant. The patient has good energy level and weight gain. Impact of disease: no overall impact. The a mount of alcohol consumed is 1 drinks per month. Current medication use: no side effects (MELATONIN). Encounter Diagnosis: ASTHMA (Renamed from AIRWAY HYPERREACTIVITY), PULMONARY NODULES, JH (OBSTRUCTIVE SLEEP APNEA) Historical Summary 13-Jan-2014 8:19 To 13-Jan-2014 8:22 Encounter Reason: COPD - The primary physician is Dr. HARITHA SALDANA. The last office visit was 7 month(s) ago. No [facility] Office changes in management were made at the last visit. The Gold Classification is Stage 1: Mild COPD. Symptoms include dyspnea on exertion (VERY MILD), non- productive cough and productive cough (RARE. HARD TO RAISE), while symptoms do not include dyspnea, dyspnea at rest, colored sputum production, increased sputum production or change in sputum quality. Onset was gradual 5 year(s) ago. The symptoms occur occasionally. The patient describes this as mild and unchanged. Symptoms are exacerbated by activity and smoking. Symptoms are relieved by inhaler use and rest. Associated symptoms do not include fever , leg edema, upper respiratory infection symptoms, chest pain or altered mental status. Current treatment includes smoking cessation program, inhaled long-acting beta-2 agonists, inhaled anticholinergic s and inhaled corticosteroids. By report there is good compliance with treatment, good tolerance of treatment and good symptom control. The frequency of exacerbations has been 1 times a year. Pertinent medical history includes smoking (has quit) and asthma. The patient has been exposed to secondhand smoke, while the patient has not been exposed to air pollution or occupational exposure to dust. The pa grey is currently able to do activities of daily living without limitations and able to work without limitations., [ADDITIONAL REASON] sleep follow up - The patient sleeps an average of 6 hours per night. Cpap intol erant. The patient has good energy level and weight gain. Impact of disease: no overall impact. The amount of alcohol consumed is 1 drinks per month. Current medication use: no side effects (MELATONIN). Office Visit 01-Jul-2013 8:57 To 01-Jul-2013 9:25 Encounter Reason: COPD - The primary physician is Dr. HARITHA SALDANA. The last office visit was 6 month(s) ago. [facility] Office agement changes made at the last visit include changing the dose of decreased Symbicort to 1 puff BID. The Gold Classification is Stage 1: Mild COPD. Symptoms include dyspnea on exertion (VERY MILD), no n-productive cough and productive cough (RARE. HARD TO RAISE), while symptoms do not include dyspnea, dyspnea at rest, colored sputum production, increased sputum production or change in sputum quality. Onset was gradual 4 year(s) ago. The symptoms occur occasionally. The patient describes this as mild and unchanged. Symptoms are exacerbated by activity and smoking. Symptoms are relieved by inhaler us e and rest. Associated symptoms do not include fever, leg edema, upper respiratory infection symptoms, chest pain or altered mental status. Current treatment includes smoking cessation program, inhaled long-acting beta-2 agonists, inhaled anticholinergics and inhaled corticosteroids. By report there is good compliance with treatment, good tolerance of treatment and good symptom control. The frequency of exacerbations has been 1 times a year. Pertinent medical history includes smoking (has quit) and asthma. The patient has been exposed to secondhand smoke , while the patient has not been exposed to ai r pollution or occupational exposure to dust. The patient is currently able to do activities of daily living without limitations and able to work without limitations., [ADDITIONAL REASON] sleep follow up - The patient sleeps an average of 6 hours per night. Cpap intolerant. The patient has good energy level and weight gain. Impact of disease: no overall impact. The a mount of alcohol consumed is 1 drinks per month. Current medication use: no side effects (MELATONIN). Encounter Diagnosis: ASTHMA (Renamed from AIRWAY HYPERREACTIVITY), JH (OBSTRUCTIVE SLEEP APNEA), PULMONARY NODULES Historical Summary 01-Jul-2013 8:46 To 01-Jul-2013 8:54 Encounter Reason: COPD - The primary physician is Dr. HARITHA SALDANA. The last office visit was 6 month(s) ago. [facility] Office agement changes made at the last visit include changing the dose of decreased Symbicort to 1 puff BID. The Gold Classification is Stage 1: Mild COPD. Symptoms include dyspnea on exertion (VERY MILD), no n-productive cough and productive cough (RARE. HARD TO RAISE), while symptoms do not include dyspnea, dyspnea at rest, colored sputum production, increased sputum production or change in sputum quality. Onset was gradual 4 year(s) ago. The symptoms occur occasionally. The patient describes this as mild and unchanged. Symptoms are exacerbated by activity and smoking. Symptoms are relieved by inhaler us e and rest. Associated symptoms do not include fever, leg edema, upper respiratory infection symptoms, chest pain or altered mental status. Current treatment includes smoking cessation program, inhaled long-acting beta-2 agonists, inhaled anticholinergics and inhaled corticosteroids. By report there is good compliance with treatment, good tolerance of treatment and good symptom control. The frequency of exacerbations has been 1 times a year. Pertinent medical history includes smoking (has quit) and asthma. The patient has been exposed to secondhand smoke , while the patient has not been exposed to ai r pollution or occupational exposure to dust. The patient is currently able to do activities of daily living without limitations and able to work without limitations., [ADDITIONAL REASON] sleep follow up - The patient sleeps an average of 6 hours per night. Cpap intolerant. The patient has good energy level and weight gain. Impact of disease: no overall impact. The a mount of alcohol consumed is 1 drinks per month. Current medication use: no side effects (MELATONIN). Historical Summary 29-Jun-2013 19:21 To 29-Jun-2013 19:27 Encounter Reason: COPD - The primary physician is Dr. HARITHA SALDANA. The last office visit was 6 month(s) ago. [facility] Office agement changes made at the last visit include none (ENCOURAGED COMPLIANCE WITH MEDS.). The Gold Classification is Stage 1: Mild COPD. Symptoms include dyspnea on exertion (VERY MILD), non-productive co ugh, productive cough (RARE. HARD TO RAISE) and colored sputum production ( LIGHT BROWN. STILL SMOKING ON OCCASION), while symptoms do not include dyspnea or dyspnea at rest. Onset was gradual 4 year(s) ago. The symptoms occur occasionally. The patient describes this as mild and unchanged. Symptoms are exacerbated by activity and smoking. Symptoms are relieved by inhaler use and rest. Associated sympto ms do not include fever, leg edema, upper respiratory infection symptoms, chest pain or altered mental status. Current treatment includes smoking cessation program, inhaled long-acting beta-2 agonists, inhaled ipratropium and inhaled corticosteroids. By report there is good compliance with treatment, good tolerance of treatment and good symptom control. The frequency of exacerbations has been 1 times a year. Pertinent medical history includes smoking (has quit) and asthma. The patient has been exposed to secondhand smoke, while the patient has not been exposed to air pollution or occupational exposu re to dust. The patient is currently able to do activities of daily living without limitations and able to work without limitations., [ADDITIONAL REASON] sleep follow up - The patient sleeps an average of 6 hours per night. Cpap intol erant. The patient has good energy level and weight gain. Impact of disease: no overall impact. The amount of alcohol consumed is 1 drinks per month. Current medication use: no side effects (MELATONIN). Office Visit 16-Dec-2012 8:51 To 16-Dec-2012 10:04 Encounter Reason: COPD - The primary physician is Dr. HARITHA SALDANA. The last office visit was 4 month(s) ago. [facility] Office agement changes made at the last visit include none (ENCOURAGED COMPLIANCE WITH MEDS.). The Gold Classification is Stage 1: Mild COPD. Symptoms include dyspnea on exertion (VERY MILD), non-productive co ugh, productive cough (RARE. HARD TO RAISE) and colored sputum production ( LIGHT BROWN. STILL SMOKING ON OCCASION), while symptoms do not include dyspnea or dyspnea at rest. Onset was gradual 4 year(s) ago. The symptoms occur occasionally. The patient describes this as mild and unchanged. Symptoms are exacerbated by activity and smoking. Symptoms are relieved by inhaler use and rest. Associated sympto ms do not include fever, leg edema, upper respiratory infection symptoms, chest pain or altered mental status. Current treatment includes smoking cessation program, inhaled long-acting beta-2 agonists, inhaled ipratropium and inhaled corticosteroids. By report there is good compliance with treatment, good tolerance of treatment and good symptom control. The frequency of exacerbations has been 1 times a year. Pertinent medical history includes smoking (has quit) (QUIT COMPLETELY AFTER HIS LAST VISIT) and asthma. The patient has been exposed to secondhand smoke, while the patient has not been exposed to air pollution or occupational exposure to dust. The patient is currently able to do activities of daily living without limitations and able to work without limitations., [ADDITIONAL REASON] sleep follow up - The patient sleeps an average of 6 hours per night. Cpap intolerant. The patient has good energy level and weight gain. Impact of disease: no overall impact. The a mount of alcohol consumed is 1 drinks per month. Current medication use: no side effects (MELATONIN). Encounter Diagnosis: PULMONARY NODULE (518.89) , ASTHMA (Renamed from AIRWAY HYPERREACTIVITY), JH (OBSTRUCTIVE SLEEP APNEA) ( 327.23), TOXIC EFFECT OF TOBACCO (989.84) Historical Summary 12-Dec-2012 16:23 To 12-Dec-2012 16:27 Encounter Reason: COPD - The primary physician is Dr. HARITHA SALDANA. The last office visit was 4 month(s) ago. [facility] Office agement changes made at the last visit include none (ENCOURAGED COMPLIANCE WITH MEDS.). The Gold Classification is Stage 1: Mild COPD. Symptoms include dyspnea on exertion (VERY MILD), non-productive co ugh, productive cough (RARE. HARD TO RAISE) and colored sputum production ( LIGHT BROWN. STILL SMOKING ON OCCASION), while symptoms do not include dyspnea or dyspnea at rest. Onset was gradual 4 year(s) ago. The symptoms occur occasionally. The patient describes this as mild and unchanged. Symptoms are exacerbated by activity and smoking. Symptoms are relieved by inhaler use and rest. Associated sympto ms do not include fever, leg edema, upper respiratory infection symptoms, chest pain or altered mental status. Current treatment includes smoking cessation program, inhaled long-acting beta-2 agonists, inhaled ipratropium and inhaled corticosteroids (DOES NOT ALWAYS USE DIRECTED.). By report there is good compliance with treatment, good tolerance of treatment and good symptom control. The frequency of exacerbations has been 1 times a year. Pertinent medical history includes smoking (currently) (QUIT ALMOST ENTIRELY IN NOVEMBER 2011 BUT DOES ADMIT TO AN OCCASSIONAL CIGARETTE) and asthma. The patien t has been exposed to secondhand smoke, while the patient has not been exposed to air pollution or occupational exposure to dust. The patient is currently able to do activities of daily living without limitations and able to work without limitations. , [ADDITIONAL REASON] sleep follow up - The patient sleeps an average of 6 hours per night. Cpap intolerant. The patient has good energy level and weight gain. Impact of disease: no overall impact. The a mount of alcohol consumed is 1 drinks per month. Current medication use: no side effects (MELATONIN). Medication Order 10-Oct-2012 15:56 To 10-Oct-2012 15:59 Encounter Diagnosis: COPD (CHRONIC OBSTRUCTIVE PULMONARY DISEASE) (496) [facility] Office Office Visit 19-Aug-2012 8:48 To 19-Aug-2012 9:32 Encounter Reason: COPD - The primary physician is Dr. HARITHA SALDANA. The last office visit was 6 month(s) ago. No [facility] Office changes in management were made at the last visit. The Gold Classification is Stage 1: Mild COPD. Symptoms include dyspnea on exertion (VERY MILD), non- productive cough, productive cough (RARE. HARD TO RAISE) and colored sputum production (LIGHT BROWN. STILL SMOKING ON OCCASION), while symptoms do not include dyspnea or dyspnea at rest. Onset was gradual 4 year(s) ago. The symptoms occur occasionally. The patient describes this as mild and unchanged. Symptoms are exacerbated by activity and smoking. Symptoms are relieved by inhaler use and rest. Associated symptoms do not include fever, leg edema, u pper respiratory infection symptoms, chest pain or altered mental status. Current treatment includes smoking cessation program, inhaled long-acting beta- 2 agonists, inhaled ipratropium and inhaled corti costeroids (DOES NOT ALWAYS USE DIRECTED.). By report there is good compliance with treatment, good tolerance of treatment and good symptom control. The frequency of exacerbations has been 1 times a year. Pertinent medical history includes smoking (currently) (QUIT ALMOST ENTIRELY IN NOVEMBER 2011 BUT DOES ADMIT TO AN OCCASSIONAL CIGARETTE) and asthma. The patient has been exposed to secondhand smok e, while the patient has not been exposed to air pollution or occupational exposure to dust. The patient is currently able to do activities of daily living without limitations and able to work without limitations., [ADDITIONAL REASON] sleep follow up - The patient sleeps an average of 6 hours per night. Cpap intolerant. The patient has good energy level and weight gain. Impact of disease: no overall impact. The a mount of alcohol consumed is 1 drinks per month. Current medication use: no side effects (MELATONIN). , [ADDITIONAL REASON] Allergic rhinitis - The onset of the allergic rhinitis has been variable and has been occurring in an intermittent pattern for years. The course has been recurrent (BETTER ON SINGULAIR). The allergic rhinitis is described as mild ( WORSE THIS FALL). Encounter Diagnosis: COPD (CHRONIC OBSTRUCTIVE PULMONARY DISEASE) (496), ASTHMA (493.90), TOXIC EFFECT OF TOBACCO (989.84), JH (OBSTRUCTIVE SLEEP APNEA) (327.23), PULMONARY NODULE (518.89) Medication Order 17-May-2012 14:18 To 17-May-2012 14:44 Encounter Diagnosis: TOXIC EFFECT, TOBACCO ( 989.84), COPD (CHRONIC OBSTRUCTIVE PULMONARY DISEASE) (496) [facility] Office Office Visit 13-Feb-2012 8:39 To 13-Feb-2012 9:55 Encounter Reason: COPD - The primary physician is Dr. HARITHA SALDANA. The last office visit was 5 month(s) ago. [facility] Office agement changes made at the last visit include adding AVELOX FOR EXCAERBATION. The Gold Classification is Stage 1: Mild COPD. Symptoms include dyspnea on exertion. Onset was gradual 4 year(s) ago. The s ymptoms occur occasionally. The patient describes this as mild and improving. Symptoms are exacerbated by activity. Symptoms are relieved by inhaler use and rest. Associated symptoms do not include feve r, leg edema, upper respiratory infection symptoms, chest pain or altered mental status. Current treatment includes smoking cessation program, inhaled long-acting beta-2 agonists, inhaled ipratropium, i nhaled corticosteroids and oral corticosteroids (CURRENTLY ON ORAL PRED. FOR SINUS DISEASE. HAS GAINED WEIGHT. IS IN THE MIDST OF BEING EVALUATED FOR REPEAT SINUS SURGERY). By report there is good compl iance with treatment, good tolerance of treatment and good symptom control. The frequency of exacerbations has been 1 times a year. Pertinent medical history includes smoking (currently) (QUIT ALMOST EN TIRELY IN NOVEMBER 2011 BUT DOES ADMIT TO AN OCCASSIONAL CIGARETTE) and asthma. The patient has not been exposed to secondhand smoke. The patient is currently able to do activities of daily living withou t limitations and able to work without limitations., [ADDITIONAL REASON] sleep follow up - The patient sleeps an average of 6 hours per night. Cpap intol erant. The patient has good energy level and weight gain. Impact of disease: no overall impact. The amount of alcohol consumed is 1 drinks per month. Current medication use: no side effects (MELATONIN). , [ADDITIONAL REASON] Allergic rhinitis - The onset of the allergic rhinitis has been variable and has been occurring in an intermittent pattern for years. The course has been recurrent (BETTER ON SINGUL AIR). The allergic rhinitis is described as mild. Encounter Diagnosis: PULMONARY NODULE (518.89) , COPD (CHRONIC OBSTRUCTIVE PULMONARY DISEASE) (496), ASTHMA (493.90), TOXIC EFFECT, TOBACCO (989.84), JH (OBSTRUCTIVE SLEEP APNEA) (327.23) Medication Order 04-Oct-2011 12:02 To 04-Oct-2011 12:08 Encounter Diagnosis: ASTHMA (493.90) [facility] Office Office Visit 25-Sep-2011 9:01 To 25-Sep-2011 11:04 Encounter Reason: COPD - The last office visit was 6 month(s) ago. Management changes made at the last visit include [facility] Office opping smoking. Symptoms include dyspnea on exertion (with exertion past couple of weeks. Was seen in urgent care a month ago and treated with an antibiotic and steroid. [place] better but symptoms not ful ly resolved and ,in fact, have worsened. ), wheezing, productive cough, colored sputum production (dark green), increased sputum production and change in sputum quality (very thick). Onset was gradual 1 month(s) ago. The episodes occur daily. The patient describes this as moderate in severity and worsening. Symptoms are exacerbated by activity and smoking. Symptoms are relieved by inhaler use and rest . Associated symptoms include upper respiratory infection symptoms, while associated symptoms do not include fever, weakness, general malaise, hemoptysis , leg edema, chest pain or altered mental status. Current treatment includes inhaled albuterol (xopenex used 2-3 times/day) and inhaled ipratropium (stopped it. "does not seem to help". Stopped Advair and cannot recall why or when.). By report there i s poor compliance with treatment, good tolerance of treatment and poor symptom control. The frequency of exacerbations has been 1 times a year. Pertinent medical history includes smoking (currently) (qu it a couple of months ago but does admit to an occassional cigarette). The patient has been exposed to secondhand smoke. The patient is currently able to do activities of daily living without limitations and able to work with limitations., [ADDITIONAL REASON] Abnormal Chest Imaging - Radiographic findings include a solitary nodule (left lung base). The patient was referred by a primary care provider. Initial presentation was 3 year(s) ag o. Past evaluation has included chest CT (original film 09/04/08, and serial films have shown stability greater than 2 years). This problem has not been previously treated. The last clinic visit was 6 month(s) ago. Management changes made at the last visit include ordering test(s ) (repeat CT Chest only is a change was noted). , [ADDITIONAL REASON] Smoking Cessation - Management changes made at the last visit include ordering c hantix. The patient smokes cigarettes (now down to an occassional one). The patient has high interest in quitting. The patient has tried to quit several times. Patient recognizes that smoking cessation benefits include saving money, improved health, improved stamina, improved breathing and improved health of family members. The patient is not currently being treated for this problem. The patient has r educed tobacco use substantially (has nearly completely quit). , [ADDITIONAL REASON] Sleep follow up - The sleep disorder is characterized as obstructive sleep apnea (mild, positional and CPAP intolerant). The patient gets approximately 7 hours of sleep per night. Current treatment includes weight loss, good sleep hygiene and side sleeping position. By report there is good compliance with treatment and good symptom control. Current symptoms include snoring (mild), while current symptoms do not include excessive daytime sleepiness, witnessed gasping during sleep, nocturnal choking, unrefreshing sleep, impaired concentration or memory problems. Encounter Diagnosis: COPD (CHRONIC OBSTRUCTIVE PULMONARY DISEASE) (496), ASTHMA (493.90), PULMONARY NODULE (518.89), JH ( OBSTRUCTIVE SLEEP APNEA) (327.23), TOXIC EFFECT, TOBACCO (989.84) Historical Summary 24-Sep-2011 12:02 To 24-Sep-2011 12:10 [facility] Office Historical Summary 22-Sep-2011 14:45 To 22-Sep-2011 15:23 [facility] Office Payers [employer] [address] [address] [place] [id number] Group Number: [id number] tel: MAGDALENA THOMPSON [phone] tel:
--- OUTSIDE RECORDS SUMMARY | 2019-09-18 08:38 | XMS REPORT | Continuity of Care Document ---
:1970 External Reference #:[id number] Author Name Niels Spence MD (transmitted by agent of provider Brianne Bojorquez) Address [address] [place] [address] Care Team Providers Name Role Phone Rubi Lyons MD - Internal Care Team Information Drying Oven Tender [phone] 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 Onset: 01/29/2017 Polyp of nasal sinus Martínez Laboy M.D. Onset: 01/29/2017 Chronic maxillary sinusitis Martínez Laboy M.D. Onset: 01/29/2017 Needle stick injury of hand Onset: 04/11/2017 Thoracic and lumbosacral neuritis Niels Spence MD Onset: 04/04/2019 Foot-drop Niels Spence MD Onset: 04/04/2019 Moderate recurrent major depression Niels Spence MD Onset: 04/04/2019 Social History Type Date Description Comments Sex Unknown Cigarette Use Quit 1 Year Ago Tobacco Use Start: Unknown Currently Smokes an Occasional Cigar Tobacco Use Start: Unknown Never Smoked A Pipe Smokeless Tobacco Never Used Smokeless Tobacco ETOH Use Occasionally consumes alcohol Tobacco Use Start: Unknown End: Patient is a former smoker Quit 191113 00/00/00 Smoking Status Reviewed: 07/03/19 Patient is a former smoker Quit 2011 Allergies, Adverse Reactions, Alerts Active Allergies Reaction Severity Comments Date Wellbutrin hives and sosb 02/07/2010 Medications Active Medications SIG Qnty Indications Ordering Date Provider Symbicort 2 puffs twice 1units [place] 07/21/2019 160-4.5mcg/Act a day MD Jordy Aerosol Magnesium 1 by mouth 90tabs M62.838 Niels 07/21/2019 400mg Tablets every day MD Jordy Triamcinolone Acetonide use twice a 30gm L20.9 [place] 07/03/2019 0.5% day MD Jordy Ointment Escitalopram Oxalate 1 1/2 by mouth 135tabs F32.9 Niels 08/08/2018 20mg every day ( md Jordy MD Tablets aware ) Atorvastatin Calcium 1 by mouth 90tabs E78.5 Niels 12/17/2017 20mg every day MD Jordy Tablets Montelukast Sodium 1 by mouth 90tabs J30.1 [place] 05/01/2015 10mg every day MD Jordy Tablets Vitamin D3 one weekly 12caps E55.9 [place] 07/22/2014 [id number] Capsules MD Jordy Albuterol Inhaler as needed Unknown Cyclobenzaprine HCL take 1 tablet Unknown 10mg by mouth three Tablets times a day if needed For Muscle Spasm History Medications Azithromycin 2 now and 1 6tabs J06.9 Niels Spence 04/09/2019 - 250mg daily x 4 days 04/17/2019 Tablets Tindamax take all 4 4tabs A09 Niels Spence 03/04/2019 - 500mg tablets now 04/02/2019 Tablets orally Prednisone one by mouth 7tabs J32.0 Martínez Laboy, 02/04/2019 - 20mg once a day in M.D. 03/03/2019 Tablets in the morning x7 days Azithromycin one by mouth 5tabs J32.0 Martínez Laboy, 02/04/2019 - 500mg once per day M.D. 03/03/2019 Tablets Medications Administered in Office Medication SIG Qnty Indications Ordering Provider Date PPD Nurse Schedule Loc 73 04/09/2019 Injection Immunizations CPT Code Status Date Vaccine Lot # [id number] Given 09/11/2018 Tdap - Tetanus/Diptheria/Acellular Pertussis 42339 Given 10/02/2013 Influenza Virus 3Yrs & Over 86024 Given 09/11/2008 Tdap - Tetanus/Diptheria/Acellular Pertussis 73547 Given 09/11/2008 Influenza Virus 3Yrs & Over 56699 Given 01/28/1998 Measles Mumps And Rubella MMR 26509 Given 01/28/1998 DT Vaccine Younger Than 7 Yrs Vital Signs Date Vital Result Comment 07/21/2019 9:18am Weight 244.00 lb BP Systolic 132 mmHg BP Diastolic 74 mmHg 07/03/2019 8:02am Weight 246.00 lb BP Systolic 134 mmHg BP Diastolic 72 mmHg Results Test Date Facility Test Result H/L Range Note Laboratory test 2019 [facility] Magnesium 1.9 mg/dL Normal 1.9-2.7 finding [address] [place] [address] [phone] Calcium 9.9 mg/dL Normal 8.6-10.3 Basic Metabolic 2019 [facility] Sodium 139 mmol/L Normal 135-145 Panel [address] [place] [address] [phone] Potassium 4.0 mmol/L Normal 3.5-5.0 Chloride 105 mmol/L Normal 101-111 Co2 Carbon Dioxide 28 mmol/L Normal 22-32 Anion Gap 6 mmol/L Normal 2-11 Glucose 95 mg/dL Normal 70-100 Blood Urea Nitrogen 14 mg/dL Normal 6-24 Creatinine 0.90 mg/dL Normal 0.67-1.17 BUN/Creatinine Ratio 15.6 Normal 8-20 Egfr Non- 89.0 >60 Egfr 107.6 >60 1 CBC Auto 04/21/2019 [facility] White Blood 6.4 10^3/uL Normal 3.5-10.[address] [place] [address] [phone] Red Blood Count 4.79 10^6/uL Normal 4.18-5.48 Hemoglobin 13.6 g/dL Low 14.0-18.0 Hematocrit 41 % Low 42-52 Mean Corpuscular Volume 85 fL Normal 80-94 Mean Corpuscular Hemoglobin 28 pg Normal 27-31 Mean Corpuscular HGB Conc 33 g/dL Normal 31-36 Red Cell Distribution Width 14 % Normal 10-15 Platelet Count 209 10^3/uL Normal 150-450 Mean Platelet Volume 8.8 fL Normal 7.4-10.4 Abs Neutrophils 4.2 10^3/uL Normal 1.5-7.7 Abs Lymphocytes 1.6 10^3/uL Normal 1.0-4.8 Abs Monocytes 0.4 10^3/uL Normal 0-0.8 Abs Eosinophils 0.2 10^3/uL Normal 0-0.6 Abs Basophils 0.0 10^3/uL Normal 0-0.2 Abs Nucleated RBC 0.0 10^3/uL Granulocyte % 65.8 % Lymphocyte % 24.2 % Monocyte % 6.5 % Eosinophil % 2.8 % Basophil % 0.7 % Nucleated Red Blood Cells % 0.1 Inr/Protime 04/21/2019 [facility] Inr 0.96 Normal 0.82-1.09 2 [address] [place] [address] [phone] Basic Metabolic 04/21/2019 [facility] Sodium 141 mmol/L Normal 135-145 Panel [address] [place] [address] [phone] Potassium 4.3 mmol/L Normal 3.5-5.0 Chloride 106 mmol/L Normal 101-111 Co2 Carbon Dioxide 29 mmol/L Normal 22-32 Anion Gap 6 mmol/L Normal 2-11 Glucose 87 mg/dL Normal 70-100 Blood Urea Nitrogen 12 mg/dL Normal 6-24 Creatinine 0.88 mg/dL Normal 0.67-1.17 BUN/Creatinine Ratio 13.6 Normal 8-20 Calcium 9.4 mg/dL Normal 8.6-10.3 Egfr Non- 91.7 >60 Egfr 110.9 >60 3 Lipid Profile 04/21/2019 [facility] Triglycerides 114 mg/dL 4 (Trig/Chol/HDL) [address] [place] [address] [phone] Cholesterol 154 mg/dL 5 HDL Cholesterol 48.2 mg/dL 6 LDL Cholesterol 83 mg/dL 7 Laboratory test 04/21/2019 [facility] PSA Screening 0.526 Normal 0-4.000 [address] ng/[place] [address] [phone] TSH (Thyroid Stim Horm) 1.05 mcIU/mL Normal 0.34-5.60 Vitamin D Total 25(Oh) 33.3 ng/mL Normal 20-50 9 Ua Routine 04/17/2019 [facility] Ua Specific [place] 1.020 Ua PH 5.0 Ua Color yellow Ua Appera normal Ua WBC - Ua Protein + Ua Glucose - Ua Ketones + Ua Bilirubin - Ua Urobilinogen - Ua Nitrite - Ua Occult Blood - Comp Metabolic 03/25/2019 [facility] Sodium 140 mmol/L Normal 135-145 [address] [place] [address] [phone] Potassium 4.2 mmol/L Normal 3.5-5.0 Chloride 106 mmol/L Normal 101-111 Co2 Carbon Dioxide 26 mmol/L Normal 22-32 Anion Gap 8 mmol/L Normal 2-11 Calcium 9.5 mg/dL Normal 8.6-10.3 Albumin 4.5 g/dL Normal 3.2-5.2 Total Bilirubin 0.40 mg/dL Normal 0.2-1.0 Glucose 95 mg/dL Normal 70-100 Blood Urea Nitrogen 11 mg/dL Normal 6-24 Creatinine 1.00 mg/dL Normal 0.67-1.17 BUN/Creatinine Ratio 11.0 Normal 8-20 Total Protein 6.7 g/dL Normal 6.4-8.9 Globulin 2.2 g/dL Normal 2-4 Albumin/Globulin Ratio 2.0 Normal 1-3 Alkaline Phosphatase 70 U/L Normal 34-104 Alt 32 U/L Normal 7-52 Ast 38 U/L Normal 13-39 Egfr Non- 79.1 >60 Egfr 95.7 >60 11 O P: 03/14/2019 [facility] O P: SEE 12 Giardia/Cryptospor [address] Giardia/Cryptospor [place] [address] Screen BELOW [phone] CBC Auto Diff 03/14/2019 [facility] White Blood Count 6.1 Normal [address] 10^3/[place] [address] 5 [phone] - 1 0 . 8 Red Blood Count 4.91 10^6/uL Normal 4.18-5.48 Hemoglobin 13.8 g/dL Low 14.0-18.0 Hematocrit 42 % Normal 42-52 Mean Corpuscular Volume 85 fL Normal 80-94 Mean Corpuscular Hemoglobin 28 pg Normal 27-31 Mean Corpuscular HGB Conc 33 g/dL Normal 31-36 Red Cell Distribution Width 14 % Normal 10.5-15 Platelet Count 191 10^3/uL Normal 150-450 Mean Platelet Volume 8.9 fL Normal 7.4-10.4 Abs Neutrophils 3.8 10^3/uL Normal 1.5-7.7 Abs Lymphocytes 1.7 10^3/uL Normal 1.0-4.8 Abs Monocytes 0.5 10^3/uL Normal 0-0.8 Abs Eosinophils 0.1 10^3/uL Normal 0-0.6 Abs Basophils 0.1 10^3/uL Normal 0-0.2 Abs Nucleated RBC 0.0 10^3/uL Granulocyte % 61.9 % Lymphocyte % 27.5 % Monocyte % 8.1 % Eosinophil % 1.6 % Basophil % 0.9 % Nucleated Red Blood Cells % 0.1 Laboratory test 03/14/2019 [facility] C-Peptide 2.8 ng/mL 1.1 - [address] 4.4 [place] [address] [phone] Ova & Parasites 03/14/2019 [facility] Parasitic See Comment [address] Exam, [place] [address] [phone] 1 Because ethnic data is not always readily available, this report includes an eGFR for both -Americans and non- Americans. The National Kidney Disease Education Program (NKDEP) does not endorse the use of the MDRD equation for patients that are not between the ages of 18 and 70, are , have extremes of body size, muscle mass, or nutritional status, or are non- or non-. According to the National Kidney Foundation, irrespective of diagnosis, the stage of the disease is based on the level of kidney function: Stage Description GFR(mL/min/1.73 m(2)) 1 Kidney damage with normal or decreased GFR 90 2 Kidney damage with mild decrease in GFR 60-89 3 Moderate decrease in GFR 30-59 4 Severe decrease in GFR 15-29 5 Kidney failure <15 (or dialysis) 2 Standard intensity warfarin therapeutic range: 2.0-3.0 High intensity warfarin therapeutic range: 2.5-3.5 3 Because ethnic data is not always readily available, this report includes an eGFR for both -Americans and non- Americans. The National Kidney Disease Education Program (NKDEP) does not endorse the use of the MDRD equation for patients that are not between the ages of 18 and 70, are , have extremes of body size, muscle mass, or nutritional status, or are non- or non-. According to the National Kidney Foundation, irrespective of diagnosis, the stage of the disease is based on the level of kidney function: Stage Description GFR(mL/min/1.73 m(2)) 1 Kidney damage with normal or decreased GFR 90 2 Kidney damage with mild decrease in GFR 60-89 3 Moderate decrease in GFR 30-59 4 Severe decrease in GFR 15-29 5 Kidney failure <15 (or dialysis) 4 Desirable: <150 Borderline High: 150-199 High: 200-499 Very High: >500 5 Desirable: <200 Borderline High: 200-239 High: >239 6 Low: <40 Desirable: 40-60 High: >60 7 Desirable: <100 Near Optimal: 100-129 Borderline High: 130-159 High: 160-189 Very High: >189 8 Serum levels of PSA measured using the Aniya Bountii DXI Hybritech immunoassay should not be interpreted as absolute evidence of the presence or absence of disease. The PSA value should be used in conjunction with other pertinent clinical diagnostic procedures. A PSA value in the range of 0.1 to 0.6 ng/ml is indeterminate if being used as an indicator of recurrent or residual disease. The values obtained with different assay methods or kits cannot be used interchangeably. 9 Total 25-Hydroxyvitamin D2 and D3 (25-OH-VitD) <10 ng/mL (severe deficiency) 10-19 ng/mL (mild to moderate deficiency) 20-50 ng/mL (optimum levels) 51-80 ng/mL (increased risk of hypercalciuria) >80 ng/mL (toxicity possible) 10 #NO V CHARGE 11 Because ethnic data is not always readily available, this report includes an eGFR for both -Americans and non- Americans. The National Kidney Disease Education Program (NKDEP) does not endorse the use of the MDRD equation for patients that are not between the ages of 18 and 70, are , have extremes of body size, muscle mass, or nutritional status, or are non- or non-. According to the National Kidney Foundation, irrespective of diagnosis, the stage of the disease is based on the level of kidney function: Stage Description GFR(mL/min/1.73 m(2)) 1 Kidney damage with normal or decreased GFR 90 2 Kidney damage with mild decrease in GFR 60-89 3 Moderate decrease in GFR 30-59 4 Severe decrease in GFR 15-29 5 Kidney failure <15 (or dialysis) 12 SEE RESULT BELOW Name: MAGDALENA THOMPSON : [address]: Niels Spence MD Acct: [id number] Unit: [id number] AGE: 48 Location: [facility] Re03/14/19 SEX: M Status: REG REF SPEC: [id number] WILLARD: 03/14/[address]: Niels Spence MD REQ: [id number] RECD: 03/14/19 STATUS: COMP _ SOURCE: STOOL SPDESC: ORDERED: O P: Giar/Crypt Procedure Result Reported Site O P: Giardia/Cryptospor Screen Final 03/14/19- 3 ML Organism 1 Neg Cryptosporidium/Giardia * ML - Main Lab . END OF REPORT DEPARTMENT OF PATHOLOGY, [address] [place] [address] Jerome Crowe M.D. Director [facility] # [id number] 13 Test Performed by: [facility] [address] [place] [address] 14 SOURCE: STOOL PARASITIC EXAMINATION FINAL No parasites seen. Cryptosporidium, Cyclospora, and microsporidia are not readily detected by this method. Single negative specimen does not rule out parasitic infection. Test Performed by: [facility] [address] [place] [address] Procedures Date Code Description Status 10/18/2016 [id number] Colonoscopy Completed Medical Devices Description No Information Available Encounters Type Date Location Provider Dx Diagnosis Office Visit 06/02/2019 [facility] Niels M21.372 Foot drop, left 8:15a MD Jordy foot M51.16 Intervertebral disc disorders w radiculopathy, lumbar region Office Visit 04/17/2019 [facility] Primary Niels M51.16 Intervertebral disc 3:15p Radha Spence MD disorders w radiculopathy, lumbar region M21.372 Foot drop, left foot Z01.818 Encounter for other preprocedural examination Office Visit 04/09/2019 [facility] Primary Niels J06.9 Acute upper 8:15a Radha Spence MD respiratory infection, unspecified Office Visit 04/03/2019 [facility] Primary Niels M51.16 Intervertebral disc 8:15a Radha Spence MD disorders w radiculopathy, lumbar region M21.372 Foot drop, left foot Office Visit 04/02/2019 8:45a [facility] Primary Niels Spence, Z00.01 Encounter for Care general adult medical exam w abnormal findings Z12.11 Encounter for screening for malignant neoplasm of colon Z12.5 Encounter for screening for malignant neoplasm of prostate M21.372 Foot drop, left foot M51.16 Intervertebral disc disorders w radiculopathy, lumbar region F33.1 Major depressive disorder, recurrent, moderate E78.5 Hyperlipidemia, unspecified J44.9 Chronic obstructive pulmonary disease, unspecified Office Visit 03/14/2019 [facility] Primary Niels A09 Infectious 9:00a Radha Spence MD gastroenteritis and colitis, unspecified Office Visit 03/04/2019 [facility] Primary Niels A07.1 Giardiasis 1:00p Radha Spence MD [lambliasis] Office Visit 03/03/2019 [facility] Primary Niels M54.5 Low back pain 8:00a Radha Spence MD M21.372 Foot drop, left foot Office Visit 02/04/2019 8:45a [facility] J33.8 Other polyp [facility] [employer] J32.0 Chronic maxillary sinusitis J31.0 Chronic rhinitis Assessments Date Code Description Provider 07/21/2019 J44.9 Chronic obstructive pulmonary disease, Niels Spence MD unspecified 07/21/2019 D64.9 Anemia, unspecified Niels Spence MD 07/21/2019 M62.838 Other muscle spasm Niels Spence MD 07/03/2019 M21.372 Foot drop, left foot Niels Spence MD 07/03/2019 M51.16 Intervertebral disc disorders with Niels Spence MD radiculopathy, lumbar reg 07/03/2019 M21.372 Foot drop, left foot Niels Spence MD 07/03/2019 M62.838 Other muscle spasm Niels Spence MD 07/03/2019 M51.16 Intervertebral disc disorders with Niels Spence MD radiculopathy, lumbar reg 07/03/2019 M62.838 Other muscle spasm Niels Spence MD 07/03/2019 F41.9 Anxiety disorder, unspecified Niels Spence MD 07/03/2019 L20.9 Atopic dermatitis, unspecified Niels Spence MD 06/02/2019 M21.372 Foot drop, left foot Niels Spence MD 06/02/2019 M51.16 Intervertebral disc disorders with Niels Spence MD radiculopathy, lumbar reg 04/17/2019 M51.16 Intervertebral disc disorders with Niels Spence MD radiculopathy, lumbar reg 04/17/2019 M21.372 Foot drop, left foot Niels Spence MD 04/17/2019 Z01.818 Encounter for other preprocedural Niels Spence MD examination 04/11/2019 Z11.1 Encounter for screening for respiratory Nurse Schedule Loc 73 tuberculosis 04/09/2019 Z11.1 Encounter for screening for respiratory Nurse Schedule Loc 73 tuberculosis 04/09/2019 J06.9 Acute upper respiratory infection, Niels Spence MD unspecified 04/03/2019 M51.16 Intervertebral disc disorders with Niels Spence MD radiculopathy, lumbar reg 04/03/2019 M21.372 Foot drop, left foot Niels Spence MD 04/02/2019 Z00.01 Encounter for general adult medical Niels Spence MD examination with abnorma 04/02/2019 Z12.11 dings Niels Spence MD 04/02/2019 Z12.5 Encounter for screening for malignant Niels Spence MD neoplasm of prostate 04/02/2019 M21.372 Foot drop, left foot Niels Spence MD 04/02/2019 M51.16 Intervertebral disc disorders with Niels Spence MD radiculopathy, lumbar reg 04/02/2019 F33.1 Major depressive disorder, recurrent, Niels Spence MD moderate 04/02/2019 E78.5 Hyperlipidemia, unspecified Niels Spence MD 04/02/2019 J44.9 Chronic obstructive pulmonary disease, Niels Spence MD unspecified 03/14/2019 A09 Infectious gastroenteritis and colitis, Niels Spence MD unspecified 03/04/2019 A07.1 Giardiasis [lambliasis] Niels Spence MD 03/03/2019 M54.5 Low back pain Niels Spence MD 03/03/2019 M21.372 Foot drop, left foot Niels Spence MD 02/04/2019 J33.8 Other polyp of sinus Martínez Laboy M.D. 02/04/2019 J32.0 Chronic maxillary sinusitis Martínez Laboy M.D. 02/04/2019 J31.0 Chronic rhinitis Martínez Laboy M.D. Plan of Treatment Future Appointment(s):10/03/2019 8:00 am - Niels Spence MD at [facility]04/06/2020 8:15 am - Niels Spence MD at [facility]07/2019 - Niels Spence MDJ44.9 Chronic obstructive pulmonary disease, fdouzqdtcisL57.9 Anemia, unspecifiedNew Labs:CBC Auto Diff, Ordered: Ferritin, Ordered: 07/21/19Iron & Iron Binding Capacity, Ordered: Vitamin B12 And Folate Serum, Ordered: 07/21/19M62.838 Other muscle spasmNew Medication:Magnesium 400 mg - 1 by mouth every day Functional Status Description No Information Available Mental Status Description No Information Available Referrals Description No Information Available
--- NOTE | 2019-09-18 09:51 | UC ---
Minor Trauma HPI - HPI Summary HPI Summary: 49 yo male with left leg weakness/atrophy/foot drop due to back injury (first sustained in 2012) Yesterday he was standing and his left foot twisted causing a fall He has left foot >back> left elbow pain has has back surgeries x 2 - History of Current Complaint Chief Complaint: UCLowerExtremity Stated Complaint: L FOOT INJ Time Seen by Provider: 09/18/19 09:45 Hx Obtained From: Patient Onset/Duration: Sudden Onset, Lasting Hours Onset Of Pain: Immediate Severity Initially: Severe Severity Currently: Severe Pain Intensity: 8 Pain Scale Used: 0-10 Numeric Mechanism Of Injury: Fall From Height Of: - standing Aggravating Factor(s): Ambulation, Movement Alleviating Factor(s): Rest Associated Signs And Symptoms: Positive: Swelling Body - Head: 1 - mild tenderness/FROM 2 - mod pain 3 - pain /swelling dorsum of mid foot - Allergies/Home Medications Allergies/Adverse Reactions: Allergies Allergy/AdvReac Type Severity Reaction Status Date / Time bupropion [From Wellbutrin] Allergy Severe Anaphylatic Verified 09/18/19 08:42 Shock mold Allergy Difficulty Uncoded 09/18/19 08:42 Breathing seasonal Allergy Difficulty Uncoded 09/18/19 08:42 Breathing Home Medications: Home Medications Cyanocobalamin TAB* [Vitamin B12 TAB*] 500 mcg PO DAILY 09/18/19 [History Confirmed 09/18/19] Escitalopram * [Lexapro *] 30 mg PO DAILY 09/18/19 [History Confirmed 09/18/19] Ferrous Gluconate [Iron 27] 240 mg PO DAILY 09/18/19 [History Confirmed 09/18/19 ] Magnesium Oxide [Magnesium] 200 mg PO DAILY 09/18/19 [History Confirmed 09/18/19 ] PMH/Surg Hx/FS Hx/Imm Hx Previously Healthy: Yes Endocrine History: Dyslipidemia Respiratory History: Asthma GI/ History: Gastroesophageal Reflux - Surgical History Surgical History: Yes Surgery Procedure, Year, and Place: NECK SX. C5, C6 STAINLESS STEEL DISK. SINUS SX X 2. DISECTOMY , INTERCOSTAL FUSION WITH DISC REPLACEMENT MAY 2019 - Family History Known Family History: Positive: Hypertension, Non-Contributory - Social History Alcohol Use: Occasionally Substance Use Type: None Smoking Status (MU): Former Smoker Type: Cigarettes Amount Used/How Often: 1 ppd Length of Time of Smoking/Using Tobacco: 20 years Have You Smoked in the Last Year: No Review of Systems All Other Systems Reviewed And Are Negative: Yes Constitutional: Positive: Negative Skin: Positive: Negative Eyes: Positive: Negative ENT: Positive: Negative Respiratory: Positive: Negative Cardiovascular: Positive: Negative Gastrointestinal: Positive: Negative Genitourinary: Positive: Negative Motor: Positive: Weakness - left leg (chronic) Neurovascular: Positive: Decreased Sensation - left leg (chronic) Musculoskeletal: Positive: Edema - dorsum of left foot Neurological: Positive: Headache Psychological: Positive: Negative Physical Exam Triage Information Reviewed: Yes Appearance: Well-Appearing, No Pain Distress, Well-Nourished Vital Signs: Initial Vital Signs Temp 97.6 F 09/18/19 08:46 Pulse 60 09/18/19 08:46 Resp 20 09/18/19 08:46 BP 141/63 09/18/19 08:46 Pulse Ox 99 09/18/19 08:46 Vital Signs Reviewed: Yes Eyes: Positive: Conjunctiva Clear ENT: Positive: Hearing grossly normal, Uvula midline. Negative: Nasal congestion, Nasal drainage, Tonsillar swelling, Tonsillar exudate, Trismus, Muffled voice, Hoarse voice, Dental tenderness Dental Exam: Normal Neck: Positive: Supple, Nontender, No Lymphadenopathy Respiratory: Positive: Lungs clear, Normal breath sounds, No respiratory distress, No accessory muscle use Cardiovascular: Positive: RRR, No Murmur Bowel Sounds: Positive: Present Musculoskeletal: Positive: Other: - see image, left leg with marked atrophy Neurological Exam: Other - left leg decreased sensation with absent reflexes Neurological: Positive: Alert Psychological Exam: Normal Skin Exam: Normal Minor Trauma Course/Dx - Differential Dx/Diagnosis Provider Diagnosis: Fall, Metatarsal fracture, Back strain, Contusion of left elbow Discharge ED - Sign-Out/Discharge Documenting (check all that apply): Patient Departure All imaging exams completed and their final reports reviewed: Yes - Discharge Plan Condition: Stable Disposition: HOME Patient Education Materials: Foot Fracture in Adults (ED), Walking Boot (ED) Referrals: Greg Fried MD [Medical Doctor] - (You have a 1:30 APPT TODAY (building next door to us)) Additional Instructions: You may need further imaging of your injury Be sure to follow up today with the orthopedist elevate foot when you can - Billing Disposition and Condition Condition: STABLE Disposition: Home
[2019-09-18] MEDS ORDERED: Naproxen TAB* 250 MG PO ONE (09:53)
[2019-09-18 10:57] VITALS: BP 131/78
== END 2019-09-18 11:13 | disposition home or self-care (01) ==
LOC: UCCORT 08:21
DX: S92.302A Fracture of unspecified metatarsal bone(s), left foot, initial encounter for closed fracture (principal); S39.012A Strain of muscle, fascia and tendon of lower back, initial encounter; S50.02XA Contusion of left elbow, initial encounter; R51 Headache; J45.909 Unspecified asthma, uncomplicated; Z98.890 Other specified postprocedural states; Z88.8 Allergy status to other drugs, medicaments and biological substances; Z91.09 Other allergy status, other than to drugs and biological substances; Z87.828 Personal history of other (healed) physical injury and trauma; Z87.891 Personal history of nicotine dependence; W19.XXXA Unspecified fall, initial encounter; X50.1XXA Overexertion from prolonged static or awkward postures, initial encounter; Y92.9 Unspecified place or not applicable
CPT/HCPCS: 72110; 99213; A9270-GY; G0463

== ENCOUNTER 2020-01-08 09:38 | Emergency (ER) | payer OTHER ==
--- OUTSIDE RECORDS SUMMARY | 2020-01-08 10:42 | XMS REPORT | Continuity of Care Document ---
:1970 Author Name Marine Photographer, System Address Unavailable Unavailable , Care Team Providers Name Role Phone Jordy LE, Haritha Unavailable Tim LE, Az Unavailable Jordy LE, Haritha Unavailable Magdalena Sampson MD Unavailable Grant MEAT CARVER, Dolores Unavailable Unavailable Michelleuria Msn Npc, La Louis Unavailable Ginger MEAT CARVER, Noreen Unavailable Unavailable Loveless MEAT CARVER, Mary Unavailable Unavailable ASSOCIATE FINANCIAL REPRESENTATIVE Preload, ASSOCIATE FINANCIAL REPRESENTATIVE Unavailable Unavailable Muñoz MEAT CARVER, Jille Unavailable Unavailable Zakiya MEAT CARVER, April Unavailable Unavailable Beaudin MEAT CARVER, Andrea Unavailable Unavailable Perry MEAT CARVER, Lona Unavailable Unavailable Slowik MEAT CARVER, Tana Unavailable Unavailable Unavailable Unavailable Problems ALLERGIC RHINITIS (J30.9) (477.9) Leon Msn Npc, [place] ANXIETY (F41.9) (300.00) Michelleuria Msn Npc, [place] COLITIS (K52.9) (558.9) Michelleuria Msn Npc, La [place] 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 Patient is currently being treated for a sinus infection by ENT. Physical exam and testing reviewed and found to be stable. Louis Noted to be doing well with current treatment regimen. Compliance with medications discussed and encouraged. Instructed to continue current therapy and contact office if experiences any difficulties wit h therapy or an increase in symptoms. The patient is also reminded to remain current on the seasonal influenza vaccine.The plan of care was discussed with Dr. Atul Adams.Treatment recommendations were d tom (in part) from: The Gold Workshop Panel. Global Strategy for the Diagnosis, Management and Prevention of COPD: NHLBI/WHO Workshop Report NLHBI; 2000. NIH Publication 2701. 2017 updates available at www.goldcopd.org as of Nov-2019 FLU VACCINE NEED (Renamed from NEED FOR IMMUNIZATION AGAINST INFLUENZA) (Z23) ( V04.81) [place] FOOT DROP, LEFT (M21.372) (736.79) Onset: Jan-2018 Comments: with progressive [place] weakness left leg GERD (GASTROESOPHAGEAL REFLUX DISEASE) (K21.9) (530.81) [place] GIARDIA (A07.1) (007.1) Onset: Dec-2018 Comments: while on a Cruise [place] HYPERLIPIDEMIA (Renamed from HLD (HYPERLIPIDEMIA)) (E78.5) (272.4) [place] IBS (IRRITABLE BOWEL SYNDROME) (K58.9) (564.1) [place] OBESITY (E66.9) (278.00) [place] JH (OBSTRUCTIVE SLEEP APNEA) (G47.33) (327.23) [place] 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 Prognosis: He reports sporadic use of the dental appliance. He is still working with his dentist to get a comfortable fit. He has no interest in retrial of cpap. as of 19-Nov-2019 Missy AHI 6/hr, 89%, CPAP intol., sleeps with a dental appliance PULMONARY NODULES (R91.8) (793.19) [place] Comments: completed 2 years Prognosis: Will go to [facility] for CXR today as of 19-Nov-[address] Chest surveillance 03/22/11, stable SINUS DISEASE (J34.9) (473.9) [place] Allergies and Adverse Reactions Mold Spores (Allergy) Wellbutrin *ANTIDEPRESSANTS* (Allergy) Comments: swelling/ diffculty breathing Medications DENTAL DEVICE ( Device) (Free Comments: Dr Paredes Text) Escitalopram Oxalate 20 MG Oral Tablet; 1 daily (20 MG) Levaquin 500 MG Oral Tablet; Comments: x7 days through ENT (500 MG) LIPITOR, 20MG (Oral Tablet); daily (20 MG) OMNARIS, 50MCG/ACT (Nasal Comments: Medication taken as Suspension); as needed (50 needed. MCG/ACT) SINGULAIR, 10MG (Oral Tablet); 1 daily (10 MG) Symbicort 160-4.5 MCG/ACT Inhalation Aerosol; 2 (two) Puff(s) two times daily for 90 days Ordered: 31-Jul-2019 Start: 31-Jul-2019 Quantity: 3 {Inhaler} [place] Refills: 3 Vitamin D 90207 UNIT Oral Capsule; 1 once a week (44084 UNIT) Xopenex HFA 45 MCG/ACT Inhalation Aerosol; 1 Aerosol tid prn for 90 days Ordered: 08-Aug-2018 Start: 08-Aug-2018 Quantity: 3 {Inhaler} Defuria [place] Refills: 3 Acid Substation Operator Transforming 10 MG Oral Status: Inactive Tablet; as needed (10 MG) Comments: Medication taken as needed. ALEJANDRO ALLERGY, 180MG (Oral Tablet); 1 (one) Tablet daily, prn for 30 days Ordered: 21-Sep-2014 Start: 27-Jul-2014 End: 26-Aug-2014 Quantity: 30 {Tablet} Defuria [facility] [place] Status: Inactive Refills: 0 Augmentin 875-125 MG Oral Tablet; 1 (one) Tablet two times daily for 10 days Ordered: 18-Mar-2018 Start: 18-Mar-2018 End: 28-Mar-2018 Quantity: 20 {Tablet} Defuria [place] Status: Inactive Refills: 0 AVELOX, 400MG (Oral Tablet); 1 (one) Tablet daily for 7 days Ordered: 2010 Start: 25-Sep-2011 End: 02-Oct-2011 Quantity: 7 {Tablet} Defuria [place] Status: Inactive Refills: 0 CALCIUM GLUCONATE, 650MG (Oral Status: Inactive Tablet); 2 tabs daily (650 MG) CHANTIX CONTINUING MONTH BEVERLY, 1MG (Oral Tablet); 1 (one) Tablet UAD for 30 days Ordered: 01-Jul-2013 Start: 10-Oct-2012 End: 01-Jul-2013 Quantity: 60 {Tablet} OLGA Burns Status: Inactive Refills: 5 CHANTIX CONTINUING MONTH BEVERLY, 1MG (Oral Tablet); 1 (one) Tablet UAD for 90 days Ordered: 01-Jul-2013 Start: 10-Oct-2012 End: 01-Jul-2013 Quantity: 180 {Tablet} OLGA Burns Status: Inactive Refills: 1 DENTAL DEVICE ( Device) (Free Text); 1 [...] End: 13-Jan-2014 Quantity: 90 {Tablet} OLGA Cummings Status: Inactive Refills: 3 SINGULAIR, 10MG (Oral [...] End: 16-Jul-2019 Quantity: 3 {Inhaler} Defuria Msn NpcLa Status: Discontinued Refills: 3 LEVBID, 0.375MG (Oral Tablet End: 13-Feb-2012 Extended Release 12 Hour); Status: Discontinued daily (0.375 MG) PREDNISONE, 10MG (Oral End: 16-Dec-2012 Tablet); daily (10 MG) Status: Discontinued Spiriva HandiHaler 18 MCG Inhalation Capsule; 1 (one) Capsule daily for 90 days Ordered: 14-Oct-2018 Start: 14-Oct-2018 End: 14-Oct-2018 Quantity: 90 {Capsule} Defuria Msn NpcLa Status: Discontinued Refills: 3 Procedures PRE AND POST W/ RT (32905) Status: Completed 19-Nov-2019 DLCO (CARBON MONOXIDE DIFFUSING CAPACITY) Status: Completed 14-Oct-2018 (96719) RESPIRATORY FLOW VOLUME LOOP (59882) Status: Completed 14-Oct-2018 REST OXIMETRY (58362) Status: Completed 14-Oct-2018 RESPIRATORY FLOW VOLUME LOOP (16885) Status: Completed 18-Mar-2018 PRE AND POST W/ RT (02558) Status: Completed 18-Mar-2018 ADMINISTRATION OF INFLUENZA VACCINE TO Status: Completed 20-Aug-2017 PATIENTS 3 YEARS AND OLDER: FLU VACCINE 3 YRS & > IM (28570) ADMIN INFLUENZA VIRUS VAC: IMMUNIZATION Status: Completed 20-Aug-2017 ADMIN (75206) REST OXIMETRY (08032) Status: Completed 20-Nov-2016 RESPIRATORY FLOW VOLUME LOOP (43002) Status: Completed 20-Nov-2016 RESPIRATORY FLOW VOLUME LOOP (10860) Status: Completed 28-Sep-2015 PRE AND POST W/ RT (03283) Status: Completed 28-Sep-2015 PRE AND POST W/ RT (88587) Status: Completed 22-Feb-2015 RESPIRATORY FLOW VOLUME LOOP (85124) Status: Completed 22-Feb-2015 RESPIRATORY FLOW VOLUME LOOP (67972) Status: Completed 27-Jul-2014 PRE AND POST (34538) Status: Completed 27-Jul-2014 RESPIRATORY FLOW VOLUME LOOP (99189) Status: Completed 13-Jan-2014 PRE AND POST W/ RT (80535) Status: Completed 13-Jan-2014 RESPIRATORY FLOW VOLUME LOOP (22926) Status: Completed 01-Jul-2013 SPIROMETRY WITH BRONCHODILATOR (94561) Status: Completed 01-Jul-2013 TOTAL VITAL CAPACITY (03584) Status: Completed 16-Dec-2012 TOTAL BODY PLETHYSMOGRAPHY: AIRWAY CLOSING Status: Completed 16-Dec-2012 VOLUME MEASUREMENT: PULM FUNCT TST PLETHYSMOGRAP (83094) RESPIRATORY FLOW VOLUME LOOP (93131) Status: Completed 16-Dec-2012 THORACIC GAS VOLUME: AIRWAY CLOSING VOLUME Status: Completed 16-Dec-2012 MEASUREMENT: PULM FUNCTION TEST BY GAS (63458) DLCO (CARBON MONOXIDE DIFFUSING CAPACITY) Status: Completed 16-Dec-2012 (75536) AIRFLOW RESISTANCE MEASUREMENT (21196) Status: Completed 16-Dec-2012 SPIROMETRY WITH BRONCHODILATOR (53071) Status: Completed 16-Dec-2012 TOBACCO USE CESSATION THERAPY: BEHAV CHNG Status: Completed 19-Aug-2012 SMOKING 3-10 MIN (40932) ACT Status: Completed Comments: 19. well controlled ACT Status: Completed Comments: ACT Status: Completed 28-Sep-2015 Comments: Back Surgery Status: Completed 29-Jun-2017 Comments: again May cervical disc surgery Status: Completed 2007 Chest X-ray Status: Completed Comments: Normal. . official interpretation and comparison by the radiologist is pending. Chest X-ray Status: Completed Comments: Referred for follow up. stable. Chest X-ray Status: Completed 14-Oct-2018 Comments: reviewed with lungs clear. official interpretation and comparison by the radiologist is pending. Chest X-ray Status: Completed 19-Nov-2019 Comments: he will go to [facility] after his appointment today Chest X-ray Status: Completed 28-Sep-2015 Comments: reviewed with no acute findings. official interpretation and comparison by the radiologist is pending. Chest X-ray Status: Completed 13-Jan-2014 Comments: reviewed today with no acute findings. official interpretation and comparison by the radiologist is pending. Flu Vaccine Status: Completed 12-Aug-2017 Comments: 08/2018, 2018 Fusion [id number] Status: Completed May-2019 PFT Status: Completed 19-Nov-2019 Comments: Minimal Obstruction. improved compared to 07/16/19 PFT Status: Completed 27-Jul-2014 Comments: Mild Obstruction. [...] Obstruction. flow rates stable compared to 07/01/13 PFT Status: Completed Comments: Mild Obstruction. Moderate Obstruction. With Reversibility. FEV1 SLIGHTLY DECREASED COMPARED TO 02/13/12 PFT Status: Completed 16-Jul-2019 Comments: Minimal Obstruction. flow rates are worse compared to 10/14/18 PFT Status: Completed 20-Aug-2017 Comments: declined d/t recent back surgery PFT Status: Completed 18-Mar-2018 Comments: Mild Obstruction. flow rates are stable compared to 11/20/16 PFT Status: Completed 14-Oct-2018 Comments: Mild Obstruction. flow rates have improved compared to 03/28/18. FVC 5.56 (99%), FEV1 3.84(88%), ratio 69%. Normal DLCO PFTs Status: Completed Comments: Moderate Obstruction. Air Trapping. Normal Diffusion Capacity. flow rates and air trapping worse compared to 03/22/11 and 10/06/08 PFTs Status: Completed Comments: Moderate Obstruction. Pneumovax Status: Completed 2008 Sinus Surgery Status: Completed 2001 PRE AND POST W/ RT (81441)Result: Hemoptysis: No Status: Completed 16-Jul-2019 PRE AND POST (18039)Result: Hemoptysis: No Status: Completed 14-Oct-2018 CXR PA & LAT (56866)Result: Are you or could Status: Completed you become ?: No; When was you last CXR/CT?: over week ago; Lmsw: MAGDALENA Merchant CHEST X-RAY, PA AND LATERAL (12223)Result: Are you Status: Completed 2016 or could you become ?: No; When was you last CXR/CT?: over a week ago; Lmsw: buffy NICHOLS ACT: ASSESSMENT OF DISEASE: ASTHMA SYMPTOMS EVALUATE [...] Score: 21 PRE AND POST W/ RT (73608)Result: Hemoptysis: No Status: Completed 20-Nov-2016 CHEST X-RAY, PA AND LATERAL (68763)Result: Are you Status: Completed 2014 or could you become ?: No; When was you last CXR/CT?: over a week ago; Lmsw: MAGDALENA Merchant ACT: ASSESSMENT OF DISEASE: ASTHMA [...] Score: 20 CHEST X-RAY, PA AND LATERAL (64191)Result: Are you Status: Completed 2012 or could you become ?: No; Lmsw: Lois Peterson LPN CHEST X-RAY - PA & L (38081)Result: Are you Status: Completed or could you become ?: No; Lmsw: MAGDALENA Merchant TOTAL BODY PLETHYSMOGRAPHY (82398)Result: Hemoptysis: Date: 25-Sep-2011 No; Medication Used: Albuterol 0.083% pam aerosol; Transmission Superintendent: Chritsiano Cummings RRT Immunizations Influenza (3 years and [...] . 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 No drug use Pets/Animals: Dog. Tobacco use: Former smoker. Comments: 15 yrs- 41 yrs. quit almost one year ago Former smoker Male Plan of Treatment Influenza (3 years and up) Scheduled for Administration Intent EXHALED GAS NITRIC OXIDE MEASUREMENT Start: 19-May-2020 Intent (MOLES/VOLUME) (72780) PRE AND POST W/ RT (18743) Start: 19-May-2020 Intent CXR PA & LAT (48314) Start: 19-Nov-2019 Intent Comments: will go to [facility] ACT: ASSESSMENT OF DISEASE: ASTHMA Start: 28-Sep-2015 Intent SYMPTOMS EVALUATE (1005F) ACT: ASSESSMENT OF DISEASE: ASTHMA Start: 27-Jul-2014 Intent SYMPTOMS EVALUATE (1005F) CHEST X-RAY, PA AND LATERAL (05587) Start: 13-Jan-2014 Intent PRE/POST W/ RT (58063) Start: 19-Aug-2012 Intent RESPIRATORY FLOW VOLUME LOOP (22058) Start: 13-Feb-2012 Intent Pre/Post (42808) Start: 13-Feb-2012 Intent MEASURE AIRFLOW RESISTANCE (67601) Start: 25-Sep-2011 Intent MONOXIDE DIFFUSING CAPACITY (71571) Start: 25-Sep-2011 Intent TGV THORACIC GAS VOLUME (60019) Start: 25-Sep-2011 Intent VITAL CAPACITY TEST (46545) Start: 25-Sep-2011 Intent RESPIRATORY FLOW VOLUME LOOP (51809) Start: 25-Sep-2011 Intent Pre/Post (18158) Start: 25-Sep-2011 Intent Medical; PRE AND POST RT - feno Start: 19-May-2020 10:15 Appointment Request [facility] Resp Therapy [facility] Medical; FOLLOW UP 15 - 6 mnth NANCY w/pprt feno Start: 19-May-2020 10:45 Appointment Request [facility] MD Maritza Adamsu COPD WITH ASTHMA : FU Dr TIM MAST Indication:COPD WITH ASTHMA COPD WITH ASTHMA : [...] WITH ASTHMA COPD WITH ASTHMA : FU Dr TIM MAST Indication:COPD WITH ASTHMA COPD WITH ASTHMA : [...] Results No Result Information Available Vital Signs 19-Nov-2019 8:28 Temperature 97.9 f Comments: Method: Tympanic Pulse 65 /min Comments: Pattern: Regular Respiration Rate 15 /min Comments: Pattern: Unlabored O2 SAT 98 % Comments: Room air BP Systolic 130 mm[Hg] Comments: Patient Position: Sitting; Cuff Location: Left Arm; Cuff Size: Standard BP Diastolic 78 mm[Hg] Comments: Patient Position: Sitting; Cuff Location: Left Arm; Cuff Size: Standard Weight 235 lb Height 73 in BMI 31 kg/m2 BSA 2.3 m2 16-Jul-2019 8:41 Temperature 97.5 f Comments: Method: [...] Scanned Document is available upon request. Encounters Historical Summary 19-Nov-2019 8:45 To 18-Nov-2019 12:12 Encounter Reason: COPD - The primary physician is Dr. Haritha Saldana. The last office visit was 4 month(s) ago ( at [facility] [place] Office the time of his last visit he was not doing as well on the bevespi, was wheezing and flow rates decreased. Symbicort was restarted.). The Gold Classification is Stage 1: Mild COPD (with asthma features) . Symptoms include dyspnea on exertion and wheezing, while symptoms do not include non-productive cough, productive cough, clear sputum production, colored sputum production, increased sputum production or change in sputum quality. Onset was gradual 5 year(s) ago. The symptoms occur occasionally. The episodes occur daily. The patient describes this as mild and worsening. Symptoms are exacerbated by ac tivity. Symptoms are relieved by inhaler use and rest. Associated symptoms do not include fever, leg edema, upper respiratory infection symptoms, chest pain or altered mental status. Current treatment i ncludes smoking cessation program, inhaled long-acting beta-2 agonists and inhaled corticosteroids. By report there is good compliance with treatment, good tolerance of treatment and good symptom contro l. The frequency of exacerbations has been 1 times a year. Pertinent medical history includes smoking (has quit) and asthma (allergies). The patient has not been exposed to secondhand smoke, air polluti on or occupational exposure to dust. The patient is currently able to do activities of daily living with limitations. Past evaluation has included chest x-ray, chest CT (with stable pulmonary nodules &g t; 2 years), pulse oximetry, pulmonary function tests and pulmonology evaluation. Past treatment has included inhaled ipratropium and inhaled corticosteroids., [ADDITIONAL REASON] Sleep follow up - The sleep disorder is characterized as obstructive sleep apnea (mild, 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 AHI 6/hr, 89%, CPAP intol., sleeps with a dental appliance). No changes in ma nagement were made at the last visit. The patient gets approximately 6 hours of sleep per night. Current treatment includes intra-oral device use. By report there is fair compliance with treatment, fair tolerance of treatment (the appliance still feels too tight. He is working with Dr Paredes ([place]) to try to adjust this) and fair symptom control. Current symptoms include sleepiness when sedentary and unrefreshing sleep, while current symptoms do not include excessive daytime sleepiness, witnessed apnea during sleep, witnessed gasping during sleep , nocturnal choking or snoring. The patient descr ibes this as unchanged. Symptoms are relieved by intra-oral device use. Associated symptoms do not include morning headaches or nocturia. Since diagnosis the disease has been unchanged. Initial presenta tion included excessive daytime sleepiness, loud snoring and unrefreshing sleep. Past treatment has included CPAP therapy. Office Visit 19-Nov-2019 8:45 To 19-Nov-2019 9:32 Encounter Reason: COPD - The primary physician is Dr. Haritha Saldana. The last office visit was 4 month(s) ago ( at [facility] the time of his last visit he was not doing as well on the bevespi, was wheezing and flow rates decreased. Symbicort was restarted.). The Gold Classification is Stage 1: Mild COPD (with asthma features) . Symptoms include dyspnea on exertion, wheezing, non-productive cough, productive cough, clear sputum production and colored sputum production (green and yellow, getting more clear. He has had 2 course s of antibiotics and prednisone rx by his primary. now improved.), while symptoms do not include increased sputum production or change in sputum quality. Onset was gradual 5 year(s) ago. The symptoms oc cur occasionally. The episodes occur daily. The patient describes this as mild and unchanged. Symptoms are exacerbated by activity. Symptoms are relieved by inhaler use and rest. Associated symptoms inc lude upper respiratory infection symptoms, while associated symptoms do not include fever, leg edema, chest pain or altered mental status. Current treatment includes smoking cessation program, inhaled l gertrudis-acting beta-2 agonists, inhaled corticosteroids and antibiotics. By report there is good compliance with treatment, good tolerance of treatment and fair symptom control. The frequency of exacerbatio ns has been 2 times a year. Pertinent medical history includes smoking (has quit) and asthma (allergies). The patient has not been exposed to secondhand smoke, air pollution or occupational exposure to dust. The patient is currently able to do activities of daily living with limitations. Past evaluation has included chest x-ray, chest CT (with stable pulmonary nodules > 2 years), pulse oximetry, pu lmonary function tests and pulmonology evaluation. Past treatment has included inhaled ipratropium and influenza vaccine., [ADDITIONAL REASON] Sleep follow up - The sleep disorder is characterized as obstructive sleep apnea (mild, 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 AHI 6/hr, 89%, CPAP intol., sleeps with a dental appliance). No changes in management were made at the last visit. The patient gets approximately 6 hours of sleep per night. Curr ent treatment includes intra-oral device use. By report there is poor compliance with treatment (uncomfortable. working with his dentist). Current symptoms include sleepiness when sedentary and [...] therapy. Encounter Diagnosis: COPD WITH ASTHMA, PULMONARY NODULES Medication Order 31-Jul-2019 11:22 To 31-Jul-2019 11:30 Encounter Diagnosis: COPD WITH ASTHMA [facility] Office Visit 16-Jul-2019 8:45 To 16-Jul-2019 9:54 Encounter Reason: COPD - The primary physician is Dr. Haritha Saldana. The last office visit was 9 month(s) ago ( at [facility] [place] [facility] the time of the last visit [...] is characterized as obstructive sleep apnea (mild, 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 AHI 6/hr, 89%, CPAP intol., sleeps [...] office visit was 6 month(s) ago. No [facility] changes in management were made at [...] is characterized as obstructive sleep apnea (mild, 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 AHI 6/hr, 89%, CPAP intol., sleeps with a dental appliance). No changes in manag ement were made at the last visit. The patient gets approximately 6 hours of sleep per night. Current treatment includes intra-oral device use. By report there is fair compliance with treatment, fair to lerance of treatment (the appliance feels too tight. He is working with Dr Paredes ([place]) to try to adjust this) and fair [...] 03-Mar-2019 15:30 Encounter Diagnosis: COPD WITH ASTHMA [facility] Office Visit 14-Oct-2018 8:38 To 14-Oct-2018 13:03 Encounter Reason: COPD - The primary physician is Dr. Haritha Saldana. The last office visit was 7 month(s) ago ( at [facility] the time of his last visit [...] He is working with Dr Camilo ridley (BRIGITTE) to try to adjust this) and fair [...] visit was 7 month(s) ago ( at [facility] the time of his last visit [...] 08-Aug-2018 14:54 Encounter Diagnosis: COPD WITH ASTHMA [facility] Office Medication Order 16-Jul-2018 13:20 To 16-Jul-2018 13:39 Encounter Diagnosis: COPD WITH ASTHMA [facility] Office Office Visit 18-Mar-2018 8:21 To 18-Mar-2018 9:16 Encounter Reason: COPD - The primary physician is Dr. Haritha Saldana. The last office visit was 7 month(s) ago. No [facility] changes in management were made at [...] office visit was 7 month(s) ago. No [facility] changes in management were made at [...] 27-Aug-2017 15:44 Encounter Diagnosis: COPD WITH ASTHMA [facility] Office Visit 20-Aug-2017 8:34 To 20-Aug-2017 9:53 Encounter Reason: COPD - The primary physician is Dr. Haritha Saldana. The last office visit was 9 month(s) ago. No [facility] changes in management were made at [...] 13-Aug-2017 9:14 Encounter Diagnosis: COPD WITH ASTHMA [facility] Historical Summary 10-Jun-2017 15:42 To 10-Jun-2017 15:48 Encounter Reason: COPD - The primary physician is Dr. Haritha Saldana. The last office visit was 7 month(s) ago. No [facility] changes in management were made at [...] morning headaches or nocturia. [facility]. Initial diagnosis of sleep disorder was 8 year(s) ago. Initial presentation included excessive daytime sleepiness, loud snoring and unrefreshing sleep. Past evaluation has included c omplete polysomnography. Past treatment has included CPAP therapy. Medication Order 12-Feb-2017 13:26 To 12-Feb-2017 14:37 Encounter Diagnosis: COPD WITH ASTHMA [facility] Medication Order 09-Feb-2017 9:42 To 12-Feb-2017 8:08 Encounter Diagnosis: COPD WITH ASTHMA [facility] Office Visit 20-Nov-2016 14:24 To 20-Nov-2016 15:14 Encounter Reason: COPD - The last office visit was 14 month(s) ago. No changes in management were made at the last [facility] t. The Gold Classification is Stage [...] 25-Sep-2016 8:39 Encounter Diagnosis: COPD WITH ASTHMA [facility] Medication Order 11-Sep-2016 11:50 To 11-Sep-2016 12:48 Encounter Diagnosis: COPD WITH ASTHMA [facility] Office Visit 28-Sep-2015 7:56 To 28-Sep-2015 9:27 Encounter Reason: COPD - The primary physician is Dr. Haritha Saldana. The last office visit was 7 month(s) ago. No [facility] changes in management were made at [...] office visit was 7 month(s) ago. No [facility] changes in management were made at [...] Encounter Diagnosis: ASTHMA (Renamed from AIRWAY HYPERREACTIVITY) [facility] Office Visit 22-Feb-2015 10:49 To 22-Feb-2015 12:03 Encounter Reason: COPD - The primary physician is Dr. HARITHA SALDANA. The last office visit was 7 month(s) ago. No [facility] [place] Office changes in management were made at [...] office visit was 7 month(s) ago. No [facility] [place] Office changes in management were made at [...] Encounter Diagnosis: ASTHMA (Renamed from AIRWAY HYPERREACTIVITY) [facility] Office Office Visit 27-Jul-2014 8:19 To 27-Jul-2014 9:05 Encounter Reason: COPD - The primary physician is Dr. HARITHA SALDANA. The last office visit was 6 month(s) ago. No [facility] Office changes in management were made at [...] office visit was 6 month(s) ago. No [facility] Office changes in management were made at [...] Encounter Diagnosis: ASTHMA (Renamed from AIRWAY HYPERREACTIVITY) [facility] Office Office Visit 13-Jan-2014 8:29 To 13-Jan-2014 9:09 Encounter Reason: COPD - The primary physician is Dr. HARITHA SALDANA. The last office visit was 7 month(s) ago. No [facility] Office changes in management were made at [...] office visit was 7 month(s) ago. No [facility] Office changes in management were made at [...] last office visit was 6 month(s) ago. [facility] Office agement changes made at the last [...] last office visit was 6 month(s) ago. [facility] Office agement changes made at the last [...] last office visit was 6 month(s) ago. [facility] Office agement changes made at the last [...] last office visit was 4 month(s) ago. [facility] Office agement changes made at the last [...] last office visit was 4 month(s) ago. [facility] Office agement changes made at the last [...] Diagnosis: COPD (CHRONIC OBSTRUCTIVE PULMONARY DISEASE) (496) [facility] Office Office Visit 19-Aug-2012 8:48 To 19-Aug-2012 9:32 Encounter Reason: COPD - The primary physician is Dr. HARITHA SALDANA. The last office visit was 6 month(s) ago. No [facility] Office changes in management were made at [...] 989.84), COPD (CHRONIC OBSTRUCTIVE PULMONARY DISEASE) (496) [facility] Office Office Visit 13-Feb-2012 8:39 To 13-Feb-2012 9:55 Encounter Reason: COPD - The primary physician is Dr. HARITHA SALDANA. The last office visit was 5 month(s) ago. [facility] Office agement changes made at the last [...] To 04-Oct-2011 12:08 Encounter Diagnosis: ASTHMA (493.90) [facility] Office Office Visit 25-Sep-2011 9:01 To 25-Sep-2011 11:04 Encounter Reason: COPD - The last office visit was 6 month(s) ago. Management changes made at the last visit include [facility] Office opping smoking. Symptoms include dyspnea on exertion (with exertion past couple of weeks. Was seen in urgent care a month ago and treated with an antibiotic and steroid. [place] better but symptoms not ful ly resolved [...] Historical Summary 24-Sep-2011 12:02 To 24-Sep-2011 12:10 [facility] Office Historical Summary 22-Sep-2011 14:45 To 22-Sep-2011 15:23 [facility] Office Payers [employer] [address] [address] [facility] [address] Group Number: [id number] tel: MAGDALENA THOMPSON [address] tel:
--- OUTSIDE RECORDS SUMMARY | 2020-01-08 10:42 | XMS REPORT | Continuity of Care Document ---
:1970 External Reference #:[id number] Author Name Martínez Laboy M.D. (transmitted by agent of provider Yasmin Lo) Address [address] [place] [id number] Care Team Providers Name Role Phone Rubi Lyons MD - Internal Care Team Information Program Trainer [phone] Medicine [facility] Care Team Information Program Trainer [phone] Pulmonary Health Physicians - Care Team Information Program Trainer [phone] Pulmonary Disease [facility] - Care Team Information Program Trainer Pain Medicine [facility] - Care Team Information Program Trainer [phone] Multi-Specialty Jerome Simons MD - Care Team Information Program Trainer [phone] Orthopaedic Surgery Problems Active Problems Provider Date Intervertebral disc [...] Used Smokeless Tobacco ETOH Use Occasionally consumes 3-4 drinks per week alcohol Tobacco Use Start: Unknown End: Patient is a former Quit 191113 00/00/00 smoker Recreational Drug Use Denies Drug Use Smoking Status Reviewed: 11/18/19 Patient is a former Quit 2011 smoker Allergies, Adverse Reactions, Alerts Active Allergies Reaction Severity Comments Date Wellbutrin hives and sosb 02/07/2010 Medications Active Medications SIG Qnty Indications Ordering Provider Date Budesonide 2ml in nasal 120ml J32.0 [facility] 11/18/2019 1mg/2ML wash Twice a Caitlyn Laboy Suspension day Levaquin 1 by mouth 7tabs J32.0 [facility] 11/18/2019 500mg Tablets daily x7 days Caitlyn Laboy Nystatin-Triamcinolone use three times 45gm B35.6 Niels 10/21/2019 a day until MD Jordy 942698-4.1Unit/GM-% clear Cream Iron (Ferrous 1 by mouth 180tabs Niels 07/28/2019 Gluconate) twice a day MD Jordy 256(28Fe) mg Tablets Vitamin B-12 take one daily 90tabs Niels 07/28/2019 5000mcg MD Jordy Tablets Dispers Symbicort 2 puffs twice a 1units Niels 07/21/2019 160-4.5mcg/Act day MD oJrdy Aerosol Triamcinolone use twice a day 30gm L20.9 Niels 07/03/2019 Acetonide MD Jordy 0.5% Ointment Escitalopram Oxalate 1 1/2 by mouth 135tabs F32.9 Niels 08/08/2018 20mg every day ( md Jordy MD Tablets aware ) Atorvastatin Calcium 1 by mouth 90tabs E78.5 Niels 12/17/2017 20mg every day MD Jordy Tablets Montelukast Sodium 1 by mouth 90tabs J30.1 Niels 05/01/2015 10mg every day MD Jordy Tablets Vitamin D3 one weekly 12caps E55.9 Niels 07/22/2014 [id number] MD Jordy Capsules Albuterol Inhaler as needed Unknown History Medications Prednisone one by mouth 7tabs J32.0 [facility] 11/04/2019 - [facility] Tablets in the morning x7 days Amoxicillin/Clavula 1 tablet by 20tabs J32.0 [facility] 11/04/2019 - maryjane Potassium mouth twice a Caitlyn Laboy 11/17/2019 day 500-125mg Tablets Magnesium 1 by mouth 90tabs M62.838 Niels 07/21/2019 - 400mg every day MD Jordy 11/03/2019 Tablets Medications Administered in Office Medication SIG Qnty Indications Ordering Provider Date PPD Nurse Schedule Loc 73 04/09/2019 Injection Immunizations CPT Code Status Date Vaccine Reaction Lot # [id number] Given 09/15/2019 Influ Virus Vaccine, Risks and Benefits Flu>3yr/ Quadrivalent, Split discussed [id number] Virus, [place] [address] Given 09/11/2018 Tdap - Tetanus/Diptheria/Acel lular Pertussis 16977 Given 10/02/2013 Influenza Virus 3Yrs & Over 28847 Given 09/11/2008 Tdap - Tetanus/Diptheria/Acel lular Pertussis 18241 Given 09/11/2008 Influenza Virus 3Yrs & Over 08755 Given 01/28/1998 Measles Mumps And Rubella MMR 69614 Given 01/28/1998 DT Vaccine Younger Than 7 Yrs Vital Signs Date Vital Result Comment 11/18/2019 11:29am Height 73 inches 6'1" Weight 242.00 lb Heart Rate 71 /min BP Systolic Sitting 122 mmHg BP Diastolic Sitting 78 mmHg Body Temperature 97.4 F Pain Level 2 O2 % BldC Oximetry 96 % BMI (Body Mass Index) 31.9 kg/m2 11/04/2019 10:22am Heart Rate 71 /min BP Systolic Sitting 132 mmHg BP Diastolic Sitting 68 mmHg Respiratory Rate 20 /min Body Temperature 98.1 F Pain Level 3 O2 % BldC Oximetry 97 % Results Test Acquired Date Facility Test Result H/L Range Note Lyme Disease AB 10/03/2019 [facility] IgG Immunoblot Negative Negative Immunoblot WB [address] [place] [address] [phone] IgG detected against None kDa IgM Immunoblot Negative Negative IgM detected against None kDa Lyme Disease Interpretation See Comment 1 CBC Auto 10/01/2019 [facility] White Blood 6.8 10^3/uL Normal 3.5-10.[address] [place] [address] [phone] Red Blood Count 4.78 10^6/uL Normal 4.18-5.48 Hemoglobin 13.8 g/dL Low 14.0-18.0 Hematocrit 41 % Low 42-52 Mean Corpuscular Volume 85 fL Normal 80-94 Mean Corpuscular Hemoglobin 29 pg Normal 27-31 Mean Corpuscular HGB Conc 34 g/dL Normal 31-36 Red Cell Distribution Width 15 % Normal 10-15 Platelet Count 230 10^3/uL Normal 150-450 Mean Platelet Volume 8.6 fL Normal 7.4-10.4 Abs Neutrophils 4.7 10^3/uL Normal 1.5-7.7 Abs Lymphocytes 1.5 10^3/uL Normal 1.0-4.8 Abs Monocytes 0.5 10^3/uL Normal 0-0.8 Abs Eosinophils 0.1 10^3/uL Normal 0-0.6 Abs Basophils 0.1 10^3/uL Normal 0-0.2 Abs Nucleated RBC 0.0 10^3/uL Granulocyte % 69.1 % Lymphocyte % 21.5 % Monocyte % 7.0 % Eosinophil % 1.5 % Basophil % 0.9 % Nucleated Red Blood Cells % 0.0 Iron & Iron Binding 10/01/2019 [facility] Iron 81 g/dL Normal 50-[address] [place] [address] [phone] Unsaturated Iron Binding < 297 g/dL Total Iron Binding Capacity 312 g/dL Normal 250-450 Transferrin 223 mg/dL Normal 203-362 % Iron Saturation 26 % Normal 15-55 Vitamin B12 10/01/2019 [facility] Vitamin B12 526 pg/mL Normal 180-9[address] [place] [address] [phone] Folic Acid (Folate) 10.52 ng/mL >3.99 CBC Auto 07/21/2019 [facility] White Blood 5.8 10^3/uL Normal 3.5-10.[address] [place] [address] [phone] Red Blood Count 4.71 10^6/uL Normal 4.18-5.48 Hemoglobin 13.4 g/dL Low 14.0-18.0 Hematocrit 40 % Low 42-52 Mean Corpuscular Volume 85 fL Normal 80-94 Mean Corpuscular Hemoglobin 29 pg Normal 27-31 Mean Corpuscular HGB Conc 33 g/dL Normal 31-36 Red Cell Distribution Width 14 % Normal 10-15 Platelet Count 198 10^3/uL Normal 150-450 Mean Platelet Volume 8.9 fL Normal 7.4-10.4 Abs Neutrophils 3.9 10^3/uL Normal 1.5-7.7 Abs Lymphocytes 1.2 10^3/uL Normal 1.0-4.8 Abs Monocytes 0.5 10^3/uL Normal 0-0.8 Abs Eosinophils 0.1 10^3/uL Normal 0-0.6 Abs Basophils 0.1 10^3/uL Normal 0-0.2 Abs Nucleated RBC 0.0 10^3/uL Granulocyte % 68.5 % Lymphocyte % 21.0 % Monocyte % 7.8 % Eosinophil % 1.8 % Basophil % 0.9 % Nucleated Red Blood Cells % 0.0 Laboratory test 07/21/2019 [facility] Ferritin 44.1 ng/mL Normal 24-[address] [place] [address] [phone] Iron & Iron 07/21/2019 [facility] Iron 71 g/dL Normal 50- 212 Binding Capacity [address] [place] [address] [phone] Unsaturated Iron Binding < 317 g/dL Total Iron Binding Capacity 332 g/dL Normal 250-450 Transferrin 237 mg/dL Normal 203-362 % Iron Saturation 21 % Normal 15-55 Vitamin B12 07/21/2019 [facility] Vitamin B12 197 pg/mL Normal 180-914 [address] [place] [address] [phone] Folic Acid (Folate) 12.67 ng/mL >3.99 Laboratory test 2019 [facility] Magnesium 1.9 mg/dL Normal 1.9-2.7 finding [address] [place] [address] [phone] Calcium 9.9 mg/dL Normal 8.6-10.3 Basic Metabolic 2019 [facility] Sodium 139 mmol/L Normal 135-145 Panel [address] [place] [address] [phone] Potassium 4.0 mmol/L Normal 3.5-5.0 Chloride 105 mmol/L Normal 101-111 Co2 Carbon Dioxide 28 mmol/L Normal 22-32 Anion Gap 6 mmol/L Normal 2-11 Glucose 95 mg/dL Normal 70-100 Blood Urea Nitrogen 14 mg/dL Normal 6-24 Creatinine 0.90 mg/dL Normal 0.67-1.17 BUN/Creatinine Ratio 15.6 Normal 8-20 Egfr Non- 89.0 >60 Egfr 107.6 >60 4 1 Specific serologic response to B. burgdorferi infection is not detected, but cannot rule out early infection during which low or undetectable antibody levels to B. burgdorferi may be present. If clinically indicated, a new serum specimen should be submitted in 7-14 days. ADDITIONAL INFORMATION Per CDC criteria, the Lyme IgG Immunoblot is interpreted as positive if IgG-class antibodies are detected to >=5 B. burgdorferi proteins, and the Lyme IgM Immunoblot is interpreted as positive if IgM-class antibodies are detected to >=2 B. burgdorferi proteins. Immunoblot patterns not meeting these criteria should not be interpreted as positive. Epitopes from certain B. burgdorferi proteins (e.g., p41) are conserved across other bacteria, which may lead to the detection of IgM- and/or IgG-class antibodies on the Lyme disease immunoblots in patients without Lyme disease. Immunoblot should only be ordered on specimens that are positive or equivocal by a FDA-licensed Lyme disease antibody screening test (e.g., EIA). Results of the Lyme IgM immunoblot should not be considered in patients with >= 30 days of symptoms. Test Performed by: [facility] [employer] - [facility] [address] [place] [address] [employer] Applier: Shay Lizama M.D. Ph.D.; CLIA# [id number] 2 Normal Range 180 to 914 Indeterminate Range 145 to 180 Deficient Range <145 3 Normal Range 180 to 914 Indeterminate Range 145 to 180 Deficient Range <145 4 Because ethnic data is not always readily [...] 15-29 5 Kidney failure <15 (or dialysis) Procedures Date Code Description Status 10/16/2019 34410 Rad Exam; Foot Comp Completed 10/18/2016 51209132 Colonoscopy Completed Medical Devices Description No Information Available Encounters Type Date Location Provider Dx Diagnosis Office Visit 11/04/2019 [facility] J32.0 Chronic maxillary 10:15a [facility] AT Caitlyn Laboy sinusitis Main J33.8 Other polyp of sinus Office Visit 10/21/2019 8:45a [facility] Niels Spence B35.6 Tinea cruris Care R10.30 Lower abdominal pain, unspecified Office Visit 10/16/2019 Leoncio Moore S92.315D Nondisp fx of 1st 8:30a [facility] at [facility] metatarsal bone, Main l ft, 7thD Office Visit 10/03/2019 [facility] Niels S90.561A Insect bite 8:30a Jordy (nonvenomous)MD right ankle, initial encounter Office Visit 09/18/2019 Leoncio Moore S92.315A Nondisp fx of 1:30p [facility] at [facility] first metatarsal Main bone, left foot, init Office Visit 07/21/2019 [facility] Niels J44.9 Chronic 9:30a Spence, obstructive MD pulmonary disease, unspecified D64.9 Anemia, unspecified M62.838 Other muscle spasm Office Visit 07/03/2019 8:00a [facility] Niels Spence, M21.372 Foot drop, Care left foot M51.16 Intervertebral disc disorders w radiculopathy, lumbar region M21.372 Foot drop, left foot M62.838 Other muscle spasm M51.16 Intervertebral disc disorders w radiculopathy, lumbar region M62.838 Other muscle spasm F41.9 Anxiety disorder, unspecified L20.9 Atopic dermatitis, unspecified Office Visit 06/02/2019 8:15a [facility] Niels Spence, M21.372 Foot drop, Care left foot M51.16 Intervertebral disc disorders w radiculopathy, lumbar region Assessments Date Code Description Provider 11/18/2019 J32.0 Chronic maxillary sinusitis Martínez Laboy M.D. 11/18/2019 J33.8 Other polyp of sinus Martínez Laboy M.D. 11/04/2019 J32.0 Chronic maxillary sinusitis Martínez Laboy M.D. 11/04/2019 J33.8 Other polyp of sinus Martínez Laboy M.D. 10/21/2019 B35.6 Tinea cruris Niels Spence MD 10/21/2019 R10.30 Lower abdominal pain, unspecified Niels Spence MD 10/16/2019 S92.315D Nondisplaced fracture of first Greg Fried MD metatarsal bone, left foot, subsequent encounter for fracture with routine healing 10/03/2019 S90.561A Insect bite (nonvenomous), right ankle, Niels Spence MD initial encounter 10/03/2019 M51.16 Intervertebral disc disorders with Niels Spence MD radiculopathy, lumbar reg 10/03/2019 M21.372 Foot drop, left foot Niels Spence MD 10/01/2019 M51.16 Intervertebral disc disorders with Niels Spence MD radiculopathy, lumbar region 10/01/2019 M21.371 Foot drop, right foot Niels Spence MD 10/01/2019 R10.30 Lower abdominal pain, unspecified Niels Spence MD 10/01/2019 D64.9 Anemia, unspecified Niels Spence MD 10/01/2019 M51.16 Intervertebral disc disorders with Niels Spence MD radiculopathy, lumbar reg 09/18/2019 S92.315A Nondisplaced fracture of first Greg Fried MD metatarsal bone, left foot, initial encounter for closed fracture 09/15/2019 Z23 Encounter for immunization Nurse Schedule Loc 73 07/21/2019 J44.9 Chronic obstructive pulmonary disease, Niels [...] with Niels Spence MD radiculopathy, lumbar reg Plan of Treatment Future Appointment(s):01/06/2020 9:30 am - Martínez Laboy M.D. at [facility] AT Crblvjhn76/24/2020 8:00 am - Niels Spence MD at [facility]04/06/2020 8:15 am - Niels Spence MD at [facility]10/16/2019 - BASHIR Beach92.315D Nondisplaced fracture of first metatarsal bone, left foot, subsequent encounter for fracture with routine healingFollow up:Follow up: As needed Functional Status Description No Information Available Mental Status Description No Information Available Referrals Refer to Reason for Referral Status Appt Date Jerome Simons MD Please arrive at the time Received Complete listed on your referral, this is your check in time. Please be sure to bring your insurance cards & photo ID as well as any copayment associated with the insurance. If you have any questions or concerns, please feel free to contact Maggy @ [phone]. Thank you. [address] [place] [address] [phone]
[2020-01-08 11:02] VITALS: BP 124/63
--- NOTE | 2020-01-08 11:18 | UC ---
Throat Pain/Nasal Saurav HPI - HPI Summary HPI Summary: 49 yo male with COPD presents with 5 days of progressively worsening cough/ wheezing and dyspnea + sinus pressure and pain +productive cough no fever or chills no cp has been using rescue inhaler - History of Current Complaint Chief Complaint: UCRespiratory Stated Complaint: SINUS/CHEST Time Seen by Provider: 01/08/20 11:00 Hx Obtained From: Patient Onset/Duration: Gradual Onset, Lasting Days Severity: Moderate Pain Intensity: 3 Pain Scale Used: 0-10 Numeric Associated Signs & Symptoms: Positive: Wheezing, Sinus Discomfort, Nasal Discharge. Negative: Dysphagia, FB Sensation, Drooling, Hoarseness, Fever, Vomiting, Rash - Epiglottits Risk Factors Epiglottis Risk Factors: Negative - Allergies/Home Medications Allergies/Adverse Reactions: Allergies Allergy/AdvReac Type Severity Reaction Status Date / Time bupropion [From Wellbutrin] Allergy Severe Anaphylatic Verified 01/08/20 11:02 Shock mold Allergy Difficulty Uncoded 01/08/20 11:02 Breathing seasonal Allergy Difficulty Uncoded 01/08/20 11:02 Breathing Home Medications: Home Medications Budesonide/Formoterol Fumarate [Symbicort] 2 puff INH BID 06/03/13 [History Confirmed 01/08/20] Montelukast Sodium TAB* [Singulair TAB*] 10 mg PO DAILY 06/03/15 [History Confirmed 01/08/20] Cholecalciferol (Vitamin D3) [Vitamin D3 Super Strength] 50,000 unit PO WEEKLY 10/04/16 [History Confirmed 01/08/20] Levalbuterol HFA INHALER* [Xopenex Hfa Inhaler*] 2 puff INH Q4HR PRN 10/04/16 [ History Confirmed 01/08/20] Cyanocobalamin TAB* [Vitamin B12 TAB*] 5,000 mcg PO DAILY 09/18/19 [History Confirmed 01/08/20] Escitalopram * [Lexapro *] 30 mg PO DAILY 09/18/19 [History Confirmed 01/08/20] Ferrous Gluconate [Iron 27] 64 mg PO QPM 09/18/19 [History Confirmed 01/08/20] Albuterol HFA INHALER* [Ventolin HFA Inhaler*] 1 puff INH SEE INSTRUCTIONS PRN 01/08/20 [History Confirmed 01/08/20] Atorvastatin* [Lipitor*] 20 mg PO QPM 01/08/20 [History Confirmed 01/08/20] DOXYcycline CAP(*) [DOXYcycline 100MG CAP(*)] 100 mg PO BID #14 cap 01/08/20 [Rx ] Multivitamin [Multivitamins] 1 cap PO DAILY 01/08/20 [History Confirmed 01/08/20 ] predniSONE 20 mg TAB [Deltasone 20 MG TAB*] 40 mg PO DAILY #10 tab 01/08/20 [Rx] PMH/Surg Hx/FS Hx/Imm Hx Previously Healthy: Yes Endocrine History: Dyslipidemia Respiratory History: COPD, Asthma, Bronchitis - Surgical History Surgical History: Yes Surgery Procedure, Year, and Place: NECK SX. C5, C6 STAINLESS STEEL DISK. SINUS SX X 2. DISECTOMY , INTERCOSTAL FUSION WITH DISC REPLACEMENT MAY 2019 - Family History Known Family History: Positive: Cardiac Disease, Hypertension - Social History Alcohol Use: Occasionally Substance Use Type: None Smoking Status (MU): Former Smoker Type: Cigarettes Amount Used/How Often: 1 ppd Length of Time of Smoking/Using Tobacco: 20 years Have You Smoked in the Last Year: No Review of Systems All Other Systems Reviewed And Are Negative: Yes Constitutional: Positive: Negative Skin: Positive: Negative Eyes: Positive: Negative ENT: Positive: Nasal Discharge Respiratory: Positive: Cough, Other - wheezing Cardiovascular: Positive: Negative Gastrointestinal: Positive: Negative Genitourinary: Positive: Negative Motor: Positive: Negative Neurovascular: Positive: Decreased Sensation - LE- chronic Musculoskeletal: Positive: Arthralgia - chronic neck and back pain Neurological/Mental Status: Positive: Negative Psychological: Positive: Negative Physical Exam Triage Information Reviewed: Yes Appearance: Well-Appearing, No Pain Distress, Well-Nourished Vital Signs: Initial Vital Signs Temp 98.3 F 01/08/20 10:56 Pulse 73 01/08/20 10:56 Resp 18 01/08/20 10:56 BP 124/63 01/08/20 10:56 Pulse Ox 96 01/08/20 10:56 Vital Signs Reviewed: Yes Eyes: Positive: Conjunctiva Clear ENT: Positive: Hearing grossly normal, Nasal congestion, Nasal drainage, TMs normal, Sinus tenderness, Uvula midline. Negative: Tonsillar swelling, Tonsillar exudate, Trismus, Muffled voice Dental Exam: Normal Neck: Positive: Supple, Nontender, No Lymphadenopathy Respiratory: Positive: No respiratory distress, No accessory muscle use, Wheezing Cardiovascular: Positive: RRR, No Murmur Musculoskeletal: Positive: Other: - uses a cane/LE atrophy Neurological: Positive: Alert Psychological Exam: Normal Skin Exam: Normal Throat Pain/Nasal Course/Dx - Differential Dx/Diagnosis Provider Diagnosis: COPD with acute exacerbation Discharge ED - Sign-Out/Discharge Documenting (check all that apply): Patient Departure All imaging exams completed and their final reports reviewed: No Studies - Discharge Plan Condition: Stable Disposition: HOME Prescriptions: DOXYcycline CAP(*) [DOXYcycline 100MG CAP(*)] 100 mg PO BID #14 cap predniSONE 20 mg TAB [Deltasone 20 MG TAB*] 40 mg PO DAILY #10 tab Patient Education Materials: Bronchospasm (ED) Referrals: Niels Spence MD [Primary Care Provider] - 5 Days (if not better) Additional Instructions: use your rescue inhaler 2 puffs 4x day for 5 days - Billing Disposition and Condition Condition: STABLE Disposition: Home
== END 2020-01-08 11:30 | disposition home or self-care (01) ==
LOC: UCCORT 09:38
DX: J44.1 Chronic obstructive pulmonary disease with (acute) exacerbation (principal); E78.5 Hyperlipidemia, unspecified; G89.29 Other chronic pain; M54.2 Cervicalgia; M54.9 Dorsalgia, unspecified; Z88.8 Allergy status to other drugs, medicaments and biological substances; Z91.09 Other allergy status, other than to drugs and biological substances; Z79.899 Other long term (current) drug therapy; Z87.891 Personal history of nicotine dependence
CPT/HCPCS: 99212; G0463